=== PATIENT | female | born 1975 | race Caucasian/White ===

== ENCOUNTER → 2017-02-13 | Outpatient (CLI) | payer OTHER ==
[~2017-02-13] MED LIST: BUPIVACAINE MPF 0.25% 10 ML VIAL. ONE; IBUP-1007 PO; IBUP-1027 PO; IOHEXOL 180 MG/ML 10 ML VIAL. ONE; SENN-79 PO; methylPREDNISolone ACETATE 40 MG/ML VIAL. ONE; methylPREDNISolone ACETATE 80 MG/ML VIAL. ONE
== END | disposition home or self-care (01) ==
LOC: PNCL 09:32
PROVIDERS: ATTEND Anesthesiology
DX: M47.816 Spondylosis without myelopathy or radiculopathy, lumbar region (principal); Z88.6 Allergy status to analgesic agent
CPT/HCPCS: 64493; 64494; J1030; J1040; J3490

== ENCOUNTER → 2017-06-24 | Outpatient (CLI) | payer OTHER ==
[~2017-06-24] MED LIST changes: -BUPIVACAINE MPF 0.25% 10 ML VIAL. ONE; +ESCITALOPRAM OX10 MG PO; -IOHEXOL 180 MG/ML 10 ML VIAL. ONE; -methylPREDNISolone ACETATE 40 MG/ML VIAL. ONE; -methylPREDNISolone ACETATE 80 MG/ML VIAL. ONE
--- NOTE | 2017-06-25 03:01 | PAIN ---
DATE OF SERVICE: 06/24/2017 PROGRESS NOTE FOR CLINIC NOTE DIAGNOSES: Low back pain with lumbar spondylosis and lumbosacral spondylosis. HISTORY OF PRESENT ILLNESS: The patient is a 41-year-old female who returns for followup status post right-sided lumbar facet joint injections on 02/13/2017. The patient did very well and reports about 75% improvement until the end of April, the pain began to return as she was running, exercising much more aggressively. She was having a physical fitness assessment evaluation as she is in active , fell during this testing and landed on her right posterior hip and gluteus on her seat, essentially with significant pain increased in the low back and bilateral lower extremity as well as in the posterior gluteus and in the low back, right greater than left, similar to that prior to the treatments of injections, but much more intense with significant pain. The patient reports the pain has gotten better over the last week, but is still significant, rates it 8 on a scale of 10 at its worst, 6 on average and a 5 at least, it is a 6 today. The patient reports it is constant, aching, dull, shooting, sharp, also some cramping and stabbing pain with some hot sensations in the lower legs in the posterior calves occasionally. The patient reports it awakens her from sleep about every 4 hours or so. She has to reposition, get out of bed, taking pain medication to get back to sleep. The patient reports worse with standing, walking, changing positions, flexing and extending in the lumbar spine, sitting and changing positions from sitting to standing and vice versa. PHYSICAL EXAMINATION: VITAL SIGNS: The patient's blood pressure 137/80, pulse 98, respirations are 18, temperature 98.2 degrees Fahrenheit, height is 5 feet 7 inches, weighs 191 pounds. GENERAL: The patient is awake, alert, oriented, appropriate, very pleasant demeanor. HEENT: Head shows normocephalic, atraumatic. Extraocular movements are intact and symmetrical. Oral cavity shows mucous membranes moist and pink. Dentition is intact. NECK: Shows anterior throat is supple without palpable lymphadenopathy noted. Swallow reflex is symmetrical. Neck shows full rotational motion of the cervical spine without difficulty or tenderness. CHEST: Shows normal on inspection. Breath sounds are clear to auscultation bilaterally. HEART: Shows S1 and S2 clear. No murmurs auscultated. ABDOMEN: Soft, nontender, nondistended. No palpable organomegaly is noted. No rebound or guarding demonstrated. BACK: Shows spine grossly midline. Normal appearing thoracic kyphosis, lumbar lordotic curvature. On inspection lumbar paraspinous muscle shows symmetrical without evidence of atrophy or hypertrophy. With palpation shows exquisite tenderness throughout the upper, middle and lower distribution, slightly more intense on the right than the left, but present bilaterally even with very light touch to the paraspinous musculature, very tender, very severe pain with the patient withdrawing from the examining hand on right and left, much more tender over the posterior superior iliac spines and the lower lumbar paraspinous musculature on the right greater than left. Again, symmetrical in appearance with very firm, very tight musculature and very tender to palpation. The patient has good rotational motion of the lumbar spine with pain reported with extension as well as right lateral rotation greater than the left, but present bilaterally. Also, has some tenderness with forward flexion as well. No specific tenderness over the sacrum. Lower extremities show deep tendon reflexes 2+ in the patellar and tendo-calcaneus tendons. Motor exam is strong with 5/5 dorsiflexion, extension, quadriceps and hamstring flexion equal. Peripheral pulses are 2+ posterior tibial and dorsalis pedis pulses. No peripheral edema is noted bilaterally. PLAN: Options were discussed with the patient. The patient's old chart was reviewed as her current medication regimen updated. Current review of systems updated today as well. We will start with a Medrol Dosepak as well as baclofen for muscle relaxation. The patient was given instructions as well as side effects to be aware of each of the medications and we will follow up after approximately 1 week of the medication regimen. Also, encouraged the patient to do stretching and strengthening exercises of low back and even to seek massage therapy for the lumbar spine as this may help once the pain is reduced to some extent. We will see if the pain returns in a similar fashion to that prior to her facet injections with the spondylosis and assess this once the medication has had time to decrease the hypersensitive pain in the lumbar paraspinous musculature. The patient understands and agrees and will follow up as scheduled. CARMELA LOVETT MD DR: MARTHA/kranthi JOB#: [id number] / [id number]
== END | disposition home or self-care (01) ==
LOC: PNCL 13:18
PROVIDERS: ATTEND Anesthesiology
DX: M47.817 Spondylosis without myelopathy or radiculopathy, lumbosacral region (principal); M47.896 Other spondylosis, lumbar region
CPT/HCPCS: 99212

== ENCOUNTER → 2017-07-08 | Outpatient (CLI) | payer OTHER ==
[~2017-07-08] MED LIST changes: +BUPIVACAINE MPF 0.25% 10 ML VIAL. ONE; +IOHEXOL 180 MG/ML 10 ML VIAL. ONE; +methylPREDNISolone ACETATE 40 MG/ML VIAL. ONE; +methylPREDNISolone ACETATE 80 MG/ML VIAL. ONE
--- NOTE | 2017-07-08 12:22 | PN ---
DATE: PROGRESS NOTE FOR PAIN CLINIC DATE OF SERVICE: 07/08/2017. DIAGNOSES: 1. Low back pain. 2. Lumbar spondylosis both lumbar and lumbosacral. HISTORY OF PRESENT ILLNESS: The patient is a 41-year-old female who returns for followup status post a recent evaluation and preauthorization for right-sided facet joint injection. The patient reports she has her approval and I would like to proceed. Reports pain still in the right side low back radiating sometimes in the right gluteus, but usually just in the back itself, aching, dull tight description rated a 5 on scale 10, as worst 3 on average at 2 on a scale of 10, the least is a 3 today. The patient reports it wakes her from sleep occasionally, but not usually, usually she sleeps about 7 hours at a time without difficulties, she applies some cold to the low back feels better. Also, stretching and strengthening has been helping, but worse with walking, standing, changing positions, better with sitting or lying down. The patient reports no new motor or sensory deficits, no new bowel or bladder incontinence or other complaints. PHYSICAL EXAMINATION: VITAL SIGNS: Today, the patient's blood pressure is 114/76, pulse is 82, respirations are 16, temperature 97.9 degrees Fahrenheit, weight is 189 pounds. GENERAL: The patient is awake, alert, oriented, appropriate, very pleasant demeanor. HEENT: Head shows normocephalic, atraumatic. Extraocular movements are intact, symmetrical. Oral cavity: Mucous membranes moist and pink. Dentition is intact. NECK: Shows anterior throat supple without palpable lymphadenopathy noted. Swallow reflex symmetrical. CHEST: Shows normal with inspection. Breath sounds clear to auscultation bilaterally. HEART: Shows S1, S2 clear. No murmurs auscultated. ABDOMEN: Soft, nontender, nondistended. No palpable organomegaly. No rebound or guarding demonstrated. BACK: Shows spine grossly midline. Lumbar paraspinous muscle shows some symmetry, with inspection on palpation shows moderate tenderness, more on the right than the left in the low lumbar distribution only, but without trigger points, without atrophy, hypertrophy. No tenderness over the spinous processes, sacrum or sacroiliac regions. The patient has good rotational motion with some minor tenderness reported with right lateral rotation and more tenderness with extension at 10 degrees without pain on forward flexion or left lateral rotation. EXTREMITIES: Lower extremities show deep tendon reflexes at 2+ in the patellar and 1+ tendo calcaneus tendons. Motor exam is strong with 5/5 dorsiflexion, extension, quadriceps and hamstring flexion equal. Peripheral pulses are 1+ posterior tibial. No peripheral edema is noted. Options were discussed with the patient. The patient's old chart reviewed, her current medication regimen updated. Current review of systems updated today as well. We will proceed with a right-sided facet joint injection at the L4-L5 and L5-S1 levels using serum fluoroscopic guidance. Risks were discussed including but not limited to bleeding, infection, possibility of epidural hematoma, subsequent neurologic compromise, dural puncture, headaches, spinal cord and/or nerve damage, side effects of steroid medication and poor results regarding pain control. The patient understands and wished to proceed. The patient to return to clinic in approximately 2 weeks for followup. She was counseled to return appointment, activity level and side effects to be aware of. DIAGNOSIS: Lumbar and lumbosacral spondylosis. PROCEDURE: Lumbar and lumbosacral L4-L5 and L5-S1 facet joint injections with serum fluoroscopic guidance under sterile prep and drape using local anesthetic. Medication injected a total of 120 mg Depo-Medrol plus 2 mL of Isovue for contrast and 2 mL of 0.25% with negative aspirate in each level. CONDITION AT DISCHARGE: Stable. The patient tolerated the procedure well, had no complications. CARMELA LOVETT MD DR: MARTHA/kranthi JOB#: [id number] / [id number]
== END | disposition home or self-care (01) ==
LOC: PNCL 07:39
PROVIDERS: ATTEND Anesthesiology
DX: M47.817 Spondylosis without myelopathy or radiculopathy, lumbosacral region (principal); Z88.6 Allergy status to analgesic agent
CPT/HCPCS: 64493; 64494; J1030; J1040; J3490

== ENCOUNTER → 2017-10-07 | Outpatient (CLI) | payer OTHER ==
[~2017-10-07] MED LIST changes: +BUPIVACAINE MPF 0.25% 10 ML VIAL.; -BUPIVACAINE MPF 0.25% 10 ML VIAL. ONE; -ESCITALOPRAM OX10 MG PO; -IBUP-1007 PO; -IBUP-1027 PO; +IOHEXOL 180 MG/ML 10 ML VIAL.; -IOHEXOL 180 MG/ML 10 ML VIAL. ONE; +LIDOCAINE 1% PF 2 ML VIAL.; -SENN-79 PO; +methylPREDNISolone ACETATE 40 MG/ML VIAL.; -methylPREDNISolone ACETATE 40 MG/ML VIAL. ONE; +methylPREDNISolone ACETATE 80 MG/ML VIAL.; -methylPREDNISolone ACETATE 80 MG/ML VIAL. ONE
== END | disposition home or self-care (01) ==
LOC: PNCL 13:21
DX: M47.817 Spondylosis without myelopathy or radiculopathy, lumbosacral region (principal); Z88.6 Allergy status to analgesic agent
CPT/HCPCS: 64493; 64494; J1030; J1040; J3490; Q9965

== ENCOUNTER → 2017-10-21 | Outpatient (CLI) | payer OTHER ==
[~2017-10-21] MED LIST changes: -LIDOCAINE 1% PF 2 ML VIAL.
== END ==
LOC: PNCL 10:57
DX: M47.817 Spondylosis without myelopathy or radiculopathy, lumbosacral region (principal)
CPT/HCPCS: 64493; 64494; J1030; J1040; J3490; Q9965

== ENCOUNTER → 2017-11-03 | Outpatient (CLI) | payer OTHER | END | disposition home or self-care (01) | LOC: PNCL 09:06 | DX: M47.897 Other spondylosis, lumbosacral region (principal) | CPT/HCPCS: 99212 ==

== ENCOUNTER → 2017-12-10 | Outpatient (CLI) | payer OTHER | END | disposition home or self-care (01) | LOC: PNCL 12:45 | DX: M47.817 Spondylosis without myelopathy or radiculopathy, lumbosacral region (principal) | CPT/HCPCS: 64493; 64494; J1030; J1040; J3490; Q9965 ==

== ENCOUNTER 2018-01-03 11:51 | Emergency (ER) | payer OTHER ==
[2018-01-03 12:29] LABS: BILIRUBIN,URINE NEGATIVE (NEG); CLARITY,URINE TURBID; COLOR,URINE YELLOW; GLUCOSE,URINE NEGATIVE (NEG); NITRITE,URINE NEGATIVE (NEG); PH,URINE 7.5; PROTEIN,URINE NEGATIVE (NEG-TRACE)
[2018-01-03 12:29] LABS: URINE HCG POC HCG NEGATIVE (Negative)
[2018-01-03 12:37] LABS: BACTERIA,URINE FEW /HPF (0-FEW); RBC,URINE 0 /HPF (0-2); SQUAMOUS EPITHELIAL CELL,UR MANY /LPF; WBC,URINE 0 /HPF (0-4)
[2018-01-03] MEDS: ONDANSETRON PF 4 MG/2 ML VIAL. IV (12:55)
[2018-01-03] MEDS: diphenhydrAMINE 50 MG/ML VIAL IVP (12:58)
[2018-01-03] MEDS: IV NORMAL SALINE 1000ML BAG 1,000 ML IV (12:59)
[2018-01-03] MEDS: fentaNYL PF VIAL 100 MCG/2 ML VIAL IV (12:59)
[2018-01-03] MEDS ORDERED: CONTRAST GIVEN MC (13:00)
[2018-01-03 13:12] LABS: ADD MAN DIFF? NO
[2018-01-03 13:15] LABS: BASO % 1 % (0-3); EOS % 0 % (0-3); HEMATOCRIT 37.8 % (36.0-47.0); HEMOGLOBIN 13.6 g/dL (12.0-15.5); LYMPH # 1.2 x10^3/uL (1.0-4.8); LYMPH % 15 % (24-48); MEAN CORPUSCULAR HEMOGLOBIN 34 pg (25-35); MEAN CORPUSCULAR HGB CONC 36 g/dL (31-37); MEAN CORPUSCULAR VOLUME 96 fL (79-100); MONO # 0.8 x10^3/uL (0.0-1.1); MONO % 10 % (0-9); NEUT % 75 % (31-73); PLATELET COUNT 258 x10^3/uL (140-400); RED BLOOD COUNT 3.95 x10^6/uL (3.50-5.40); RED CELL DISTRIBUTION WIDTH 12.4 % (11.5-14.5); WHITE BLOOD COUNT 8.1 x10^3/uL (4.0-11.0)
[2018-01-03 13:23] LABS: ANION GAP 12 (6-14); BLOOD UREA NITROGEN 11 mg/dL (7-20); BUN/CREATININE RATIO 11 (6-20); CALCIUM 8.3 mg/dL (8.5-10.1); CARBON DIOXIDE 25 mmol/L (21-32); CHLORIDE 98 mmol/L (98-107); GFR 61.1; GLUCOSE 102 mg/dL (70-99); POTASSIUM 3.2 mmol/L (3.5-5.1); SODIUM 135 mmol/L (136-145)
[2018-01-03 13:29] LABS: ALBUMIN 3.3 g/dL (3.4-5.0); ALBUMIN/GLOBULIN RATIO 0.9 (1.0-1.7); ALK PHOS 72 U/L (46-116); ALT (SGPT) 27 U/L (14-59); AST (SGOT) 22 U/L (15-37); TOTAL PROTEIN 7.1 g/dL (6.4-8.2)
[2018-01-03 13:32] LABS: LACTIC ACID 1.5 mmol/L (0.4-2.0)
[2018-01-03] MEDS: IOHEXOL 300 MG/ML 100ML VIAL. IV (13:34)
== END 2018-01-03 14:46 | disposition home or self-care (01) ==
LOC: ER 11:51
DX: R10.31 Right lower quadrant pain (principal); L50.9 Urticaria, unspecified; T78.40XA Allergy, unspecified, initial encounter; Z90.49 Acquired absence of other specified parts of digestive tract; Z88.8 Allergy status to other drugs, medicaments and biological substances
CPT/HCPCS: 36415; 74177; 80053; 81001; 81025; 83605; 85025; 87040; 87086; 96374; 96375; 99285-25; J1200; J2405; J3010; J7030; Q9967

== ENCOUNTER → 2018-01-21 | Outpatient (CLI) | payer OTHER ==
[~2018-01-21] MED LIST changes: -IOHEXOL 180 MG/ML 10 ML VIAL.; +LIDOCAINE 1% PF 2 ML VIAL.; +LIDOCAINE 2% PF Vial for OR 5 ML VIAL.
== END | disposition home or self-care (01) ==
LOC: PNCL 12:56
DX: M47.817 Spondylosis without myelopathy or radiculopathy, lumbosacral region (principal); F43.10 Post-traumatic stress disorder, unspecified; Z88.5 Allergy status to narcotic agent; Z90.49 Acquired absence of other specified parts of digestive tract
CPT/HCPCS: 64635; 64636; J1030; J1040; J3490

== ENCOUNTER → 2018-02-09 | Day surgery (SDC) | payer OTHER ==
[~2018-02-09] MED LIST changes: -BUPIVACAINE MPF 0.25% 10 ML VIAL.; -LIDOCAINE 1% PF 2 ML VIAL.; +LIDOCAINE 1% PF 2 ML VIAL. ID; -LIDOCAINE 2% PF Vial for OR 5 ML VIAL.; +MIDAZOLAM HCL/PF 2 MG/2 ML VIAL. IV; +PROPOFOL 20 ML IV; +fentaNYL PF VIAL 100 MCG/2 ML VIAL IV; -methylPREDNISolone ACETATE 40 MG/ML VIAL.; -methylPREDNISolone ACETATE 80 MG/ML VIAL.
[2018-02-09 11:47] LABS: NEG OBC UR NEG; POS OBC UR POS; U PREG PATIENT NEGATIVE (NEG)
[2018-02-09] MEDS: IV RINGERS,LACTATED 1000ML 1,000 ML IV (11:50)
== END | disposition home or self-care (01) ==
LOC: SURG 11:07
DX: K57.30 Diverticulosis of large intestine without perforation or abscess without bleeding (principal); K64.0 First degree hemorrhoids; F43.10 Post-traumatic stress disorder, unspecified; Z90.49 Acquired absence of other specified parts of digestive tract; Z98.890 Other specified postprocedural states; Z72.89 Other problems related to lifestyle; Z88.8 Allergy status to other drugs, medicaments and biological substances
CPT/HCPCS: 45378; 81025; J2704

== ENCOUNTER → 2018-02-24 | Outpatient (CLI) | payer OTHER | END | disposition home or self-care (01) | LOC: PNCL 08:06 | DX: M47.896 Other spondylosis, lumbar region (principal); M47.897 Other spondylosis, lumbosacral region | CPT/HCPCS: 99212 ==

== ENCOUNTER → 2018-02-25 | Outpatient (CLI) | payer OTHER ==
[~2018-02-25] MED LIST changes: +BUPIVACAINE MPF 0.25% 10 ML VIAL.; +IOHEXOL 180 MG/ML 10 ML VIAL.; +LIDOCAINE 1% PF 2 ML VIAL.; -LIDOCAINE 1% PF 2 ML VIAL. ID; -MIDAZOLAM HCL/PF 2 MG/2 ML VIAL. IV; -PROPOFOL 20 ML IV; -fentaNYL PF VIAL 100 MCG/2 ML VIAL IV; +methylPREDNISolone ACETATE 40 MG/ML VIAL.; +methylPREDNISolone ACETATE 80 MG/ML VIAL.
== END | disposition home or self-care (01) ==
LOC: PNCL 14:05
DX: M47.817 Spondylosis without myelopathy or radiculopathy, lumbosacral region (principal); Z88.5 Allergy status to narcotic agent; Z90.49 Acquired absence of other specified parts of digestive tract; Z98.890 Other specified postprocedural states; F43.10 Post-traumatic stress disorder, unspecified
CPT/HCPCS: 64493; 64494; J1030; J1040; J3490; Q9965

== ENCOUNTER → 2018-03-17 | Outpatient (CLI) | payer OTHER ==
[~2018-03-17] MED LIST changes: -LIDOCAINE 1% PF 2 ML VIAL.; +LIDOCAINE 2% PF 2ML VIAL.; +LIDOCAINE 2% PF Vial for OR 5 ML VIAL.
== END | disposition home or self-care (01) ==
LOC: PNCL 10:04
DX: M47.817 Spondylosis without myelopathy or radiculopathy, lumbosacral region (principal); Z88.5 Allergy status to narcotic agent; Z90.49 Acquired absence of other specified parts of digestive tract; Z98.890 Other specified postprocedural states; Z79.899 Other long term (current) drug therapy; Z72.89 Other problems related to lifestyle
CPT/HCPCS: 64635; 64636; J1030; J1040; J2001; J3490; Q9965

== ENCOUNTER → 2020-07-09 | Outpatient (CLI) | payer OTHER ==
[2018-02-09 13:37] VITALS: BP 128/59
[~2020-07-09] MED LIST changes: +ACET500T68 PO; +BACL20TA PO; -BUPIVACAINE MPF 0.25% 10 ML VIAL.; +DULO60CA6 PO; +ESCITALOPRAM OX10 MG PO; +GABA-585 PO; +HYDR-2769 PO; +IBUP-1007 PO; +IBUP-1027 PO; +IBUP-1060 PO; -IOHEXOL 180 MG/ML 10 ML VIAL.; +LACT1CAP6 PO; +LEVO25TA4 PO; +LEVO500T59 PO; -LIDOCAINE 2% PF 2ML VIAL.; -LIDOCAINE 2% PF Vial for OR 5 ML VIAL.; +METR500T PO; +ONDA4TAB10 SL; +ONDA4TAB7 PO; +POLY17PO29 PO; +PSYL0.5215 PO; +PYRI200T3 PO; +SENN-182 PO; +THYR30TA PO; +TOPI50TA8 PO; +Vitamin d3; +marinol; -methylPREDNISolone ACETATE 40 MG/ML VIAL.; -methylPREDNISolone ACETATE 80 MG/ML VIAL.
--- NOTE | 2020-07-09 10:19 | PDOC ---
Progress Note - Pain Clinic Date of Service: DOS: DATE: 07/09/20 TIME: 10:15 Diagnosis: Dx: Lumbar radiculopathy with lumbar degenerative disease and lumbar and lumbosacral spondylosis Cervical radiculopathy with cervical degenerative disc disease History or Present Illness: HPI: 44-year-old female returns for follow-up last seen 2018 patient had radiofrequency ablation lumbar right and left L4-5 and L5-S1 facet medial branches. Patient reports did very well with his about 90% plus improvement in the low back over the past 2 years however the pain is returned in the low back and now rating the right lower extremity in the posterior gluteus posterior lateral thigh lateral anterior thigh anterior medial thigh medial lower leg to the calf into the ankle worse with walking standing changing positions. Patient ports better with sitting or laying down but awakens her from sleep at times and is worse in the morning when she first gets up. Patient also has pain in the base the neck and left upper extremity but also has rotator cuff injury on the left side. Patient rates her pain as a 9 is worse over the past week 8 on average 6 at its least is 8 today. Patient describes the pain as burning cramping and stabbing the low back and leg with shooting and radiating qualities as well. Patient reports no loss of motor function but significant fatigability the right lower extremity in the low back with activity. Patient did have a new MRI scans of both the cervical thoracic and lumbar spines which were reviewed with her today. Physical Exam: VS: Blood pressure is 113/81 pulse 79 respirations are 16 temperature is 97.9 F height is 5 feet 7 inches weight is 189 pounds PE: PHYSICAL EXAMINATION: GENERAL: The patient is awake, alert, oriented, appropriate, very pleasant demeanor HEENT: Shows normocephalic, atraumatic. Extraocular movements are intact and symmetrical. Oral cavity: Mucous membranes moist and pink. Dentition is intact. NECK: Shows anterior throat supple without palpable lymphadenopathy noted. Swallow reflex symmetrical. CHEST: Shows normal on inspection. Breath sounds are clear bilaterally, no rales rhonchi or wheezes. HEART: Shows S1, S2 clear. No murmurs auscultated. ABDOMEN: Soft, nontender, nondistended, obese. No palpable organomegaly is noted. No rebound or guarding demonstrated. BACK: Shows spine grossly in the midline. Normal-appearing cervical lordotic curvature. There is slightly increased thoracic kyphosis, some minor flattening of the lumbar lordotic curvature. Lumbar paraspinous muscles show symmetrical on inspection, on palpation shows some moderate tenderness diffusely throughout the upper, middle and lower distribution of the paraspinous muscles bilaterally and also into the lower thoracic paraspinous musculature, firm and tender, but without specific trigger points, without radiation of pain. The patient has good rotational motion of the lumbar spine, both laterally as well as extension and flexion with moderate pain noted with posterior extension and lumbar axial loading, moderate pain with right and left lateral rotation more to the left than the right at past 10 degrees but without radiation. No tenderness over the spinous processes, sacrum or sacroiliac regions. EXTREMITIES: Lower extremities show deep tendon reflexes 2+ in the patellar and tendo calcaneus tendons. Motor exam is 5 on a scale of 5 with right dorsiflexi on, extension, quadriceps and hamstring flexion and 5/5 on the left. Peripheral pulses are 1+ posterior tibial. No peripheral edema is noted bilaterally. Lower extremities are warm and dry to touch, equal in color and appearance. SKIN: Shows warm and dry, good turgor. No edema. No sores, rashes or bruising throughout. Procedure: Procedure: Options discussed with the patient. Patient chart was reviewed as her current medication regimen updated current review of systems updated today as well. We will preauthorize patient for lumbar epidural steroid injection and once obtained we will have patient return and proceed. We also discussed potential facet injections in the future as she did very well with these for her axial back pain and possible cervical epidural steroid injection pending orthopedic assessment of rotator cuff damage. Patient will continue with stretching strength exercises on her own and will follow-up for lumbar epidural steroid injection once approved. Medication Injected: Med Injected: None Condition at Discharge: Condition at Discharge: Condition at discharge is stable. CARMELA LOVETT MD Jul 09, 2020 10:19
== END | disposition home or self-care (01) ==
LOC: PNCL 09:27
PROVIDERS: ATTEND Anesthesiology
DX: M51.16 Intervertebral disc disorders with radiculopathy, lumbar region (principal); M47.27 Other spondylosis with radiculopathy, lumbosacral region; M50.10 Cervical disc disorder with radiculopathy, unspecified cervical region; Z90.49 Acquired absence of other specified parts of digestive tract; Z98.890 Other specified postprocedural states; Z79.899 Other long term (current) drug therapy; Z88.8 Allergy status to other drugs, medicaments and biological substances; Z72.89 Other problems related to lifestyle
CPT/HCPCS: 99212; G0463

== ENCOUNTER → 2020-07-23 | Outpatient (CLI) | payer OTHER ==
[2018-02-09 13:37] VITALS: BP 128/59
[~2020-07-23] MED LIST changes: +IOHEXOL 180 MG/ML 10 ML VIAL. ONE; +TOPI100T8 PO; +methylPREDNISolone ACETATE 40 MG/ML VIAL. ONE; +methylPREDNISolone ACETATE 80 MG/ML VIAL. ONE
--- NOTE | 2020-07-23 09:48 | PDOC ---
Progress Note - Pain Clinic Date of Service: DOS: DATE: 07/23/20 TIME: 09:46 Diagnosis: Dx: Lumbar radiculopathy with lumbar degenerative disc disease and lumbar spondylosis Cervical radiculopathy with cervical degenerative disc disease History or Present Illness: HPI: 45-year-old female returns follow-up status post initial evaluation and preauthorization for lumbar epidural steroid injection. Patient is achieved this would like to proceed today. Patient low back right greater than left lower extremity posterior gluteus posterior lateral thigh anterior thigh anteromedial thigh medial lower leg and into the foot and ankle on the left side as well. Patient reports her pain is a 7 on scale 10 is worse with the past week 6 on average 6 its least and is a 6 today. Patient reports is burning describes as constant aching sharp and tight in the back with shooting pain in the lower extremity as described. Patient reports no new motor or sensory deficits no new bowel or bladder incontinence or other complaints. Physical Exam: VS: Blood pressure is 100/69 pulse 98 respirations 16 temperature is 98.0 F and weight is 187 pounds PE: PHYSICAL EXAMINATION: GENERAL: The patient is awake, alert, oriented, appropriate, very pleasant demeanor HEENT: Shows normocephalic, atraumatic. Extraocular movements are intact and symmetrical. NECK: Shows anterior throat supple without palpable lymphadenopathy noted. Swallow reflex symmetrical. CHEST: Shows normal on inspection. Breath sounds are clear bilaterally. HEART: Shows S1, S2 clear. No murmurs auscultated. ABDOMEN: Soft, nontender, nondistended, obese. No palpable organomegaly is noted. No rebound or guarding demonstrated. BACK: Shows spine grossly in the midline. Normal-appearing cervical lordotic curvature. There is slightly increased thoracic kyphosis, some minor flattening of the lumbar lordotic curvature. Lumbar paraspinous muscles show symmetrical on inspection, on palpation shows some moderate tenderness diffusely throughout the upper, middle and lower distribution of the paraspinous muscles, but without specific trigger points, without radiation of pain. The patient has good rotational motion of the lumbar spine, both laterally as well as extension and flexion without significant difficulty. No tenderness over the spinous processes, sacrum or sacroiliac regions. EXTREMITIES: Lower extremities show deep tendon reflexes 2+ in the patellar and tendo calcaneus tendons. Motor exam is 5 on a scale of 5 with right dorsiflexion, extension, quadriceps and hamstring flexion and 5/5 on the left. Peripheral pulses are 1+ posterior tibial. No peripheral edema is noted bilaterally. Lower extremities are warm and dry to touch, equal in color and appearance. SKIN: Shows warm and dry, good turgor. No edema. No sores, rashes or bruising throughout. Procedure: Procedure: Options were discussed with the patient. Patient's old chart was reviewed as her current medication regimen updated current review of systems updated today as well. We will proceed with a lumbar epidural steroid injection today with fluoroscopic guidance. Risks were discussed including but not limited to: Bleeding, infection, possibility of epidural hematoma and subsequent neurological compromise, dural puncture, headaches, spinal cord and/or nerve damage, side effects of steroid medication, and poor results regarding pain control. Patient understands wished to proceed. Patient return to clinic in approximate 2 weeks for follow-up, was counseled as to return appointment activity level and side effects to be aware of. Medication Injected: Med Injected: Procedure is lumbar epidural steroid injection under local anesthetic using sterile prep and drape at the L3-4 level using C-arm fluoroscopic guidance in both AP and lateral views medications injected is 120 mg Depo-Medrol + 10 mL preservative-free normal saline and 2 mL contrast- condition at discharge is stable patient tolerated procedure well had no complications. Condition at Discharge: Condition at Discharge: Condition at discharge stable, patient tolerated seizure well and had no complications CARMELA LOVETT MD Jul 23, 2020 09:48
== END | disposition home or self-care (01) ==
LOC: PNCL 09:08
PROVIDERS: ATTEND Anesthesiology
DX: M51.16 Intervertebral disc disorders with radiculopathy, lumbar region (principal); M47.26 Other spondylosis with radiculopathy, lumbar region; M50.10 Cervical disc disorder with radiculopathy, unspecified cervical region; Z90.49 Acquired absence of other specified parts of digestive tract; Z98.890 Other specified postprocedural states; Z79.899 Other long term (current) drug therapy; Z72.89 Other problems related to lifestyle; Z88.8 Allergy status to other drugs, medicaments and biological substances
CPT/HCPCS: 62323; J1030; J1040; Q9965

== ENCOUNTER → 2020-08-06 | Outpatient (CLI) | payer OTHER ==
[2018-02-09 13:37] VITALS: BP 128/59
--- NOTE | 2020-08-06 10:04 | PDOC ---
Progress Note - Pain Clinic Date of Service: DOS: DATE: 08/06/20 TIME: 10:01 Diagnosis: Dx: Low back pain with lumbar radiculopathy lumbar degenerative disc disease and lumbar spondylosis Cervical radiculopathy with cervical degenerative disc disease History or Present Illness: HPI: 45-year-old female returns follow-up status post lumbar epidural steroid injection x1. Patient reports about 50% improvement overall with pain in the back is much better but still some pain in the hips more on the right than the left and present bilaterally in the posterior lateral hips lateral thighs anterior thighs medial thighs as well patient reports is a 7 on scale 10 is worse over the past week 6 on average for its least is a 5 today patient which is burning tight can be radiating constant with activity much better overall patient is been increase her distance walking doing household activities work activities travel with greater ease and comfort in sitting for prolonged periods which is much improved. Patient reports no new motor or sensory deficits no new bowel bladder incontinence occasionally wakes her from sleep but not every night. Physical Exam: VS: Blood pressure is 109/77 pulse 86 respirations 20 temperature 90.3 F height is 5 feet 7 inches weight is 191 pounds PE: PHYSICAL EXAMINATION: GENERAL: The patient is awake, alert, oriented, appropriate, very pleasant demeanor HEENT: Shows normocephalic, atraumatic. Extraocular movements are intact and symmetrical. NECK: Shows anterior throat supple without palpable lymphadenopathy noted. Swallow reflex symmetrical. CHEST: Shows normal on inspection. Breath sounds are clear bilaterally. HEART: Shows S1, S2 clear. No murmurs auscultated. ABDOMEN: Soft, nontender, nondistended, obese. No palpable organomegaly is noted. No rebound or guarding demonstrated. BACK: Shows spine grossly in the midline. Normal-appearing cervical lordotic curvature. There is slightly increased thoracic kyphosis, some minor flattening of the lumbar lordotic curvature. Lumbar paraspinous muscles show symmetrical on inspection, on palpation shows some moderate tenderness diffusely throughout the upper, middle and lower distribution of the paraspinous muscles, but without specific trigger points, without radiation of pain. The patient has good rotational motion of the lumbar spine, both laterally as well as extension and flexion without significant difficulty. No tenderness over the spinous processes, sacrum or sacroiliac regions. EXTREMITIES: Lower extremities show deep tendon reflexes 2+ in the patellar and tendo calcaneus tendons. Motor exam is 5 on a scale of 5 with right d orsiflexion, extension, quadriceps and hamstring flexion and 5/5 on the left. Peripheral pulses are 1+ posterior tibial. No peripheral edema is noted bilaterally. Lower extremities are warm and dry to touch, equal in color and appearance. SKIN: Shows warm and dry, good turgor. No edema. No sores, rashes or bruising throughout. Procedure: Procedure: Options were discussed with the patient. Patient chart was reviewed as her current medication regimen updated current review of systems updated today as well. We will proceed with a second in the series lumbar epidural steroid injection today with fluoroscopic guidance. Risks were discussed including but not limited to: Bleeding, infection, possibility of epidural hematoma and subsequent neurological compromise, dural puncture, headaches, spinal cord and/or nerve damage, side effects of steroid medication, and poor results regarding pain control. Patient understands wished to proceed. Patient return to clinic in approximate 2 weeks for follow-up, was counseled as to return appointment activity level and side effects to be aware of. Medication Injected: Med Injected: Procedure is lumbar epidural steroid injection under local anesthetic using sterile prep and drape at the L3-4 level using C-arm fluoroscopic guidance in both AP and lateral views medications injected is 120 mg Depo-Medrol + 10 mL preservative-free normal saline and 2 mL contrast- condition at discharge is stable patient tolerated procedure well had no complications. Condition at Discharge: Condition at Discharge: Condition at discharge is stable, patient tolerated the procedure well and had no complications. CARMELA LOVETT MD Aug 06, 2020 10:04
== END | disposition home or self-care (01) ==
LOC: PNCL 08:59
PROVIDERS: ATTEND Anesthesiology
DX: M51.16 Intervertebral disc disorders with radiculopathy, lumbar region (principal); M47.26 Other spondylosis with radiculopathy, lumbar region; M50.10 Cervical disc disorder with radiculopathy, unspecified cervical region; Z90.49 Acquired absence of other specified parts of digestive tract; Z98.890 Other specified postprocedural states; Z79.899 Other long term (current) drug therapy; Z88.8 Allergy status to other drugs, medicaments and biological substances; Z72.89 Other problems related to lifestyle
CPT/HCPCS: 62323; J1030; J1040; Q9965

== ENCOUNTER → 2020-08-24 | Outpatient (CLI) | payer OTHER ==
[2018-02-09 13:37] VITALS: BP 128/59
--- NOTE | 2020-08-24 10:40 | PDOC ---
Progress Note - Pain Clinic Date of Service: DOS: DATE: 08/24/20 TIME: 10:35 Diagnosis: Dx: Cervical radiculopathy with cervical degenerative disc disease Lumbar radiculopathy with lumbar degenerative disease and lumbar and lumbosacral spondylosis Occipital neuralgia bilateral History or Present Illness: HPI: 45-year-old female returns follow-up status post lumbar epidural steroid injections x2. Patient reports about 80% improvement in her low back and bilateral lower extremity pain with almost no pain on the left side and only mild pain rated as a 2 on a scale of 10 on the right side. Patient will keep increasing activity distance walking doing greater work activities household activities travel with greater ease and comfort and sleeping better at night with her back to her back and legs however her chief complaint is neck and bilateral upper extremity pain worse on the left than the right. Patient also reports significant posterior headaches worse on the left than the right but present bilaterally consistent with previous diagnosis of occipital neuralgia. Patient does have a left rotator cuff which is scheduled for surgery October 02, 2020. Patient reports that the pain in the neck and shoulders bilaterally is keeping her up at night about every 4-5 hours wakes her from sleep she has to get out of bed change positions to get back to sleep. Patient reports her pain is a 9 on scale of 10 is worse over the past week regarding her neck and upper extremities 7 at its average and 6 its least is a 7 today. Patient reports no new motor or sensory deficits no bowel or bladder incontinence. Physical Exam: VS: Pressure is 117/81 pulse 84 respirations 16 temperature 97.8 F, height is 5 foot 7-1/2 inches weight is 1 8 8 pounds PE: PHYSICAL EXAMINATION: GENERAL: The patient is awake, alert, oriented, appropriate, very pleasant demeanor HEENT: Shows normocephalic, atraumatic. Extraocular movements are intact and symmetrical. Oral cavity: Mucous membranes moist and pink. NECK: Shows anterior throat supple without palpable lymphadenopathy noted. Swallow reflex symmetrical. CHEST: Shows normal on inspection. Breath sounds are clear bilaterally, no rales or rhonchi. HEART: Shows S1, S2 clear. No murmurs auscultated. ABDOMEN: Soft, nontender, nondistended, obese. No palpable organomegaly is noted. No rebound or guarding demonstrated. BACK: Shows spine grossly in the midline. Normal-appearing cervical lordotic curvature. Cervical paraspinous posterior shows symmetrical with inspection, on palpation shows some moderate tenderness diffusely bilaterally in the inferior aspect of the cervical paraspinous posture as well as the superior medial trapezius bilaterally slightly more on the right than the left. Patient has good rotation motion of the cervical spine both laterally greater than 45 degrees right level is full extension full forward flexion without significant increase in pain. There is slightly increased thoracic kyphosis, some mild flattening of the lumbar lordotic curvature. Lumbar paraspinous muscles show symmetrical on inspection, on palpation shows some moderate tenderness diffusely throughout the upper, middle and lower distribution of the paraspinous muscles, but without specific trigger points, without radiation of pain. The patient has good rotational motion of the lumbar spine, both laterally as well as extension and flexion without significant difficulty. No tenderness over the spinous processes, sacrum or sacroiliac regions. EXTREMITIES: Lower extremities show deep tendon reflexes 2+ in the patellar and tendo calcaneus tendons. Motor exam is 5 on a scale of 5 with right dorsiflexion, extension, quadriceps and hamstring flexion and 5/5 on the left. Peripheral pulses are 1+ posterior tibial. No peripheral edema is noted bilaterally. Lower extremities are warm and dry to touch, equal in color and appearance. Upper extremity show deep tendon reflexes 2+ in the bicep and triceps tendons and are equal. [employer] strength biceps and triceps flexion is 5 out of 5 and equal. Patient does have significant difficulty with abduction of the shoulder on the left secondary to significant pain and rotator cuff tear right side is normal rotation. SKIN: Shows warm and dry, good turgor. No edema. No sores, rashes or bruising throughout. Procedure: Procedure: Options were discussed with the patient. Patient chart reviews her current medication regimen updated current review of systems updated today as well. We will proceed with a cervical epidural steroid injection today with fluoroscopic guidance. Risks were discussed including but not limited to: Bleeding, infection, possibility of epidural hematoma and subsequent neurological compromise, dural puncture, headaches, spinal cord and/or nerve damage, side effects of steroid medication, and poor results regarding pain control. Patient understands wished to proceed. Patient will return to clinic in approximate 2 weeks for follow-up was counseled as to return appointment activity level and side effects to be aware of. Medication Injected: Med Injected: Procedure cervical epidural steroid injection at the C6-7 level, using local anesthetic under sterile prep and drape using C-arm fluoroscopic guidance under local anesthesia medications injected ; 120 mg Depo-Medrol + 5 mL normal saline and 2 mL contrast; condition at discharge is stable patient tolerated procedure well. and had no complications Condition at Discharge: Condition at Discharge: Condition at discharge stable, patient tolerated the procedure well and had no complications. CARMELA LOVETT MD Aug 24, 2020 10:40
== END | disposition home or self-care (01) ==
LOC: PNCL 09:43
PROVIDERS: ATTEND Anesthesiology
DX: M50.10 Cervical disc disorder with radiculopathy, unspecified cervical region (principal); M51.16 Intervertebral disc disorders with radiculopathy, lumbar region; M47.27 Other spondylosis with radiculopathy, lumbosacral region; M54.81 Occipital neuralgia; Z90.49 Acquired absence of other specified parts of digestive tract; Z98.890 Other specified postprocedural states; Z79.899 Other long term (current) drug therapy; Z72.89 Other problems related to lifestyle; Z88.1 Allergy status to other antibiotic agents; Z88.8 Allergy status to other drugs, medicaments and biological substances
CPT/HCPCS: 62321; J1030; J1040; Q9965

== ENCOUNTER → 2020-09-26 | Outpatient (CLI) | payer OTHER ==
[2018-02-09 13:37] VITALS: BP 128/59
[~2020-09-26] MED LIST changes: +BUPIVACAINE MPF 0.25% 10 ML VIAL. ONE; +CARB15DR3 OU; +CYAN25008 PO; +DRON10CA5 PO; -IOHEXOL 180 MG/ML 10 ML VIAL. ONE; +LACT1CAP29 PO; +LEVO112T49 PO; +LEVO25TA55 PO; +LIOT5TAB4 PO; +TOPI50CA5 PO; +[UNRECOGNIZED DRUG - OTHER] PO; -methylPREDNISolone ACETATE 80 MG/ML VIAL. ONE
--- NOTE | 2020-09-26 11:59 | PDOC ---
Progress Note - Pain Clinic Date of Service: DOS: DATE: 09/26/20 TIME: 11:48 Diagnosis: Dx: Low back pain with lumbar degenerative disc disease and lumbar and lumbosacral spondylosis Cervical radiculopathy with cervical degenerative disease Bilateral occipital neuralgia History or Present Illness: HPI: 45-year-old female returns in follow-up status post cervical epidural steroid injections as well as lumbar facet injections and radiofrequency ablation with excellent results near 100% improvement with the lumbar facet radio frequency ablation. Patient reports neck is doing better but only by about 75% chief complaint today is occipital headaches and we discussed this with her on her last visit and was waiting for preauthorization which she is obtained now for occipital nerve blocks she did very well with these in the past. Patient ports significant headache left greater than right in the posterior aspect of the occipital region radiating into the posterior occiput and parietal region again bilateral but much worse on the left side. Patient which is dull and aching burning and can be constant sharp and dull in stations as well in the posterior occipital region bilaterally. Patient reports no new motor or sensory deficits but still significant pain is returning now in the low back greater on the right than the left consistent with facet syndrome with increased pain with axial loading and extension of the lumbar spine without radiation into the lower extremities again with right lateral rotation worse on the right side. Physical Exam: VS: Blood pressure is 110/78 pulse 76 respirations 18 temperature is 97.5 F height 5 feet 7 inches weight 196 pounds PE: PHYSICAL EXAMINATION: GENERAL: The patient is awake, alert, oriented, appropriate, very pleasant demeanor HEENT: Shows normocephalic, atraumatic. Extraocular movements are intact and symmetrical. NECK: Shows anterior throat supple without palpable lymphadenopathy noted. Swallow reflex symmetrical. CHEST: Shows normal on inspection. Breath sounds are clear bilaterally, no rales or rhonchi. HEART: Shows S1, S2 clear. No murmurs auscultated. ABDOMEN: Soft, nontender, nondistended, obese. No palpable organomegaly is noted. BACK: Shows spine grossly in the midline. Normal-appearing cervical lordotic curvature. Cervical paraspinous muscles show symmetrical on inspection, on palpation shows some diffuse tenderness in the superior aspect of the cervical paraspinous muscles are greater on the left than the right but present bilaterally without specific trigger points. With palpation over the posterior occipital region shows very significant tenderness and sore musculature very firm on the left side as opposed to the right but without radiation. Patient shows good rotation motion cervical spine both laterally as well as extension flexion without significant increase in pain. There is slightly increased thoracic kyphosis, some flattening of the lumbar lordotic curvature. Lumbar paraspinous muscles show symmetrical on inspection, on palpation shows some moderate tenderness diffusely throughout the upper, middle and lower distribution of the paraspinous muscles bilaterally and also into the lower thoracic paraspinous musculature, firm and tender, but without specific trigger points, without radiation of pain. The patient has good rotational motion of the lumbar spine, with increased pain with extension and axial loading and lumbar spine as well as greater right lateral rotation greater than 10 degrees as opposed to left but significant pain 2 both sides without radiation to lower extremities full forward flexion is performed at 45 degrees without significant increase in pain. No tenderness over the spinous processes, sacrum or sacroiliac regions. EXTREMITIES: Lower extremities show deep tendon reflexes 2+ in the patellar and tendo calcaneus tendons. Motor exam is 5 on a scale of 5 with right dorsiflex ion, extension, quadriceps and hamstring flexion and 5/5 on the left. Peripheral pulses are 1+ posterior tibial. No peripheral edema is noted bilaterally. Lower extremities are warm and dry to touch, equal in color and appearance. Upper extremities show deep tendon reflexes 2+ in the bicep triceps tendons, motor exam is strong with director of quality strength as is bicep and tricep flexion rated 5 out of 5 and equal. Peripheral pulses are 2+ radial bilaterally. SKIN: Shows warm and dry, good turgor. No edema. No sores, rashes or bruising throughout. 5 Procedure: Procedure: Options were discussed with the patient, patient's old chart reviews her current medication regimen updated current review of systems updated today as well. We will proceed with bilateral greater and lesser occipital nerve blocks today. Risks were discussed including but not limited to bleeding infection possibility of intravascular injection and sequelae, spread to local anesthetic and numbness and side effects of steroid medication. Patient understands wished to proceed. Patient return to clinic in approximately 4 weeks for follow-up was counseled to return appointment activity level and side effects to be aware of. Medication Injected: Med Injected: Under sterile prep and drape patient sitting position bilateral greater and lesser occipital nerve blocks were carried out using a 25-gauge 1/2 inch needle at the median distance between the occipital protuberance and the mastoid p rocess with a palpable occipital pulse both left and right total of 4 cc each side for a total of 8 cc of bupivacaine was used after negative aspiration each side as well as a total of 40 mg Depo-Medrol, 20 mg each side. Sterile bandages were applied patient tolerated procedure well and had no complications. Condition at Discharge: Condition at Discharge: Condition at discharge stable, patient alert procedure well and had no complications. We discussed potential repeat radiofrequency ablation as patient is having significant increase in pain in the lumbar spine consistent with facet syndrome and has done very well with these in the past. We will wait for preauthorization and have her return for potential bilateral L4-5 and L5-S1 lumbar medial branch radiofrequency ablation. CARMELA LOVETT MD Sep 26, 2020 11:59
--- NOTE | 2020-09-26 12:00 | PDOC4 ---
PROCEDURE Procedure Patient was consented for bilateral greater and lesser occipital nerve blocks. Risks were discussed including but not limited to bleeding infection possibility of intravascular injection sequelae spread to local anesthetic numbness side effects steroid medication and portal scarring pain control. Patient understands wished to proceed. Under sterile prep and drape patient sitting position bilateral greater and lesser occipital nerve blocks were carried out using a 25-gauge 1/2 inch needle at the median distance between the occipital protuberance and the mastoid process with a palpable occipital pulse both left and right total of 4 cc each side for a total of 8 cc of bupivacaine was used after negative aspiration each side as well as a total of 40 mg Depo-Medrol, 20 mg each side. Sterile bandages were applied patient tolerated procedure well and had no complications. CARMELA LOVETT MD Sep 26, 2020 12:00
== END | disposition home or self-care (01) ==
LOC: PNCL 10:42
PROVIDERS: ATTEND Anesthesiology
DX: M54.81 Occipital neuralgia (principal); M51.36 Other intervertebral disc degeneration, lumbar region; M47.816 Spondylosis without myelopathy or radiculopathy, lumbar region; M50.10 Cervical disc disorder with radiculopathy, unspecified cervical region; Z88.6 Allergy status to analgesic agent; Z91.048 Other nonmedicinal substance allergy status; Z88.8 Allergy status to other drugs, medicaments and biological substances; Z98.890 Other specified postprocedural states
CPT/HCPCS: 64405; J1030; J3490

== ENCOUNTER → 2020-09-28 | Outpatient (CLI) | payer OTHER ==
[2018-02-09 13:37] VITALS: BP 128/59
[~2020-09-28] MED LIST changes: -BUPIVACAINE MPF 0.25% 10 ML VIAL. ONE; -methylPREDNISolone ACETATE 40 MG/ML VIAL. ONE
== END ==
LOC: LAB 13:05
PROVIDERS: ATTEND Orthopaedic Surgery
DX: Z01.812 Encounter for preprocedural laboratory examination (principal); S43.432A Superior glenoid labrum lesion of left shoulder, initial encounter; Z20.822 Contact with and (suspected) exposure to COVID-19; X58.XXXA Exposure to other specified factors, initial encounter; Y93.89 Activity, other specified; Y92.89 Other specified places as the place of occurrence of the external cause; Y99.8 Other external cause status
CPT/HCPCS: U0003

== ENCOUNTER → 2020-10-02 | Day surgery (SDC) | payer OTHER ==
[~2020-10-02] VITALS: Ht 171.4 cm; Wt 86.2 kg
[~2020-10-02] MED LIST changes: +BUPIVACAINE MPF 0.5% 30 ML VIAL. ONE; +BUPIVACAINE-EPI 0.5% 30 ML VIAL KIT. ONE; +CLINDAMYCIN 900MG PREMIX 50 ML IV PRN; +DEXAMETHASONE SOD PHOS 4 MG/ML VIAL ONE; +EPINEPHrine VIAL 30 MG/30 ML VIAL ONE; +GLYCOPYRROLATE 1 MG/5 ML VIAL. ONE; +HYDROmorphone 2 MG/ML VIAL IVP PRN; +IV RINGERS,LACTATED 1000ML 1,000 ML IV SCH; +LIDOCAINE 1% PF 2 ML VIAL. ONE; +LIDOCAINE 2% PF 5 ML VIAL. ONE; +MIDAZOLAM HCL/PF 2 MG/2 ML VIAL. ONE; +MORPHINE SULFATE 2 MG/ML VIAL. IVP PRN; +NEOSTIGMINE METHYLSULFATE 5 MG/5 ML SYRINGE. ONE; +ONDANSETRON PF 4 MG/2 ML VIAL. ONE; +PHENYLEPHRINE in 0.9% NACL PF 1 MG/10 ML SYRINGE. IV ONE; +PROCHLORPERAZINE 10 MG/2 ML VIAL. IVP PRN; +PROCHLORPERAZINE 10 MG/2 ML VIAL. ONE; +PROPOFOL 10 MG/ML (20ML) VIAL. IV ONE; +ROCURONIUM 50 MG/5 ML VIAL. ONE; +SCOPOLAMINE 1.5MG PATCH. TD ONE; +SEVOFLURANE 61 TO 120 MINUTES. IH ONE; +SUCCINYLCHOLINE 200 MG/10 ML VIAL. ONE; +diphenhydrAMINE 50 MG/ML VIAL ONE; +fentaNYL PF VIAL 100 MCG/2 ML VIAL IVP PRN
[2020-10-02 07:00] VITALS: BP 112/61
[2020-10-02 07:34] LABS: BASO % 1 % (0-3); EOS # 0.2 x10^3/uL (0.0-0.7); EOS % 4 % (0-3); HEMOGLOBIN 12.9 g/dL (12.0-15.5); LYMPH # 2.3 x10^3/uL (1.0-4.8); LYMPH % 42 % (24-48); MEAN CORPUSCULAR HEMOGLOBIN 34 pg (25-35); MEAN CORPUSCULAR HGB CONC 34 g/dL (31-37); MEAN CORPUSCULAR VOLUME 100 fL (79-100); MONO # 0.5 x10^3/uL (0.0-1.1); MONO % 9 % (0-9); NEUT # 2.4 x10^3/uL (1.8-7.7); NEUT % 44 % (31-73); PLATELET COUNT 286 x10^3/uL (140-400); RED BLOOD COUNT 3.81 x10^6/uL (3.50-5.40); RED CELL DISTRIBUTION WIDTH 13.1 % (11.5-14.5); WHITE BLOOD COUNT 5.4 x10^3/uL (4.0-11.0)
[2020-10-02 07:44] LABS: CALCIUM 9.1 mg/dL (8.5-10.1); GFR 60.2
--- NOTE | 2020-10-02 22:44 | PDOC4 ---
Operative Note Operative Note Date of surgery: 10/02/2020 Preoperative diagnosis: Left shoulder labral tear and severe acromioclavicular joint pain Postoperative diagnosis: Labral tear without biceps compromise, acromioclav icular joint degenerative joint disease and severe subacromial irritation Operative procedure: Left shoulder arthroscopy extensive labral debridement, subacromial decompression distal clavicle excision Surgeon: Esther Anesthesia: General plus scalene block Currency Exchange Specialist: Nura colon Complications: None Operative indications: Please see my preoperative orthopedic clinic note for detailed operative indications and note that we reviewed indications today and risk benefits postoperative course including the possibility of infection nerve or blood vessel damage continued pain medical or other anesthetic complications among others she wishes to proceed with surgical evaluation and treatment. Operative text: Patient was identified procedure verified patient placed in the supine position on the operating table. After adequate amounts of general anesthesia plus a pre-existing scalene block were obtained, she was placed decubitus position left side up using the beanbag positioner and all bony prom inences were well-padded. The shoulder was first examined under anesthesia found to have full range of motion and no instability. The left shoulder was then prepped and draped in the standard sterile fashion and placed in the arthroscopic arm steiner with a total of 10 pounds of traction. After timeout was performed patient procedure identified and verified a standard posterior p ortal was established an anterior portal established using spinal needle localization and the shoulder joint was systematically examined. She was noted to have significant labral tearing and fraying around the entire periphery which was debrided back to stable tissue using a combination of the arthroscopic shaver and electrocautery. There was no peelback lesion superiorly nor was there compromise of the biceps tendon or insertion as it was exposed in the joint likewise no subluxation. Rotator cuff insertion and bare area of the humerus were noted to be normal as were the capsuloligamentous structures. Subacromial space was entered and there was significant subacromial irritation and a large anterior acromial spur and a very degenerative narrowed acromioc lavicular joint. Acromion was converted to a type I acromion using cutting block technique and distal clavicle was excised 1 cm preserving the overlying joint capsule for stability. Bony fragments were removed with the arthroscopic shaver and the rotator cuff noted to be without compromise on the bursal surface and all degrees of internal/external rotation. Arthroscope was withdrawn joint was drained of arthroscopic fluid portals Were closed with nylon suture sterile dressings were applied patient was returned to recovery room in stable condition having tolerated the procedure well. Nura mensah assist was present for the procedure assisted in patient positioning prepping draping closure and dressings ISHAN DAO MD Oct 02, 2020 22:44
== END | disposition home or self-care (01) ==
LOC: SURG 06:06
PROVIDERS: ATTEND Orthopaedic Surgery
DX: S43.432A Superior glenoid labrum lesion of left shoulder, initial encounter (principal); K21.9 Gastro-esophageal reflux disease without esophagitis; M19.90 Unspecified osteoarthritis, unspecified site; F41.9 Anxiety disorder, unspecified; F32.9 Major depressive disorder, single episode, unspecified; Z90.49 Acquired absence of other specified parts of digestive tract; Z98.890 Other specified postprocedural states; Z79.899 Other long term (current) drug therapy; Z72.89 Other problems related to lifestyle; Z88.8 Allergy status to other drugs, medicaments and biological substances; X58.XXXA Exposure to other specified factors, initial encounter; Y93.89 Activity, other specified; Y92.89 Other specified places as the place of occurrence of the external cause; Y99.8 Other external cause status
CPT/HCPCS: 29822; 29824; 36415; 64415; 80048; 81025; 85025; J0171; J0330; J0780; J1100; J1200; J2250; J2370; J2405; J2704; J2710; J3010; J3490; J7120

== ENCOUNTER → 2021-01-18 | Outpatient (CLI) | payer OTHER ==
[2020-10-02 07:00] VITALS: BP 112/61
[~2021-01-18] MED LIST changes: -BUPIVACAINE MPF 0.5% 30 ML VIAL. ONE; -BUPIVACAINE-EPI 0.5% 30 ML VIAL KIT. ONE; -CLINDAMYCIN 900MG PREMIX 50 ML IV PRN; -DEXAMETHASONE SOD PHOS 4 MG/ML VIAL ONE; -EPINEPHrine VIAL 30 MG/30 ML VIAL ONE; +EPIPEN 2-P0.3 MG/0.3 IM; -GLYCOPYRROLATE 1 MG/5 ML VIAL. ONE; +HYDR200T5 PO; -HYDROmorphone 2 MG/ML VIAL IVP PRN; +IOHEXOL 180 MG/ML 10 ML VIAL. ONE; -IV RINGERS,LACTATED 1000ML 1,000 ML IV SCH; -LACT1CAP29 PO; +LACT1CAP37 PO; -LIDOCAINE 1% PF 2 ML VIAL. ONE; -LIDOCAINE 2% PF 5 ML VIAL. ONE; +MAGN400C PO; -MIDAZOLAM HCL/PF 2 MG/2 ML VIAL. ONE; -MORPHINE SULFATE 2 MG/ML VIAL. IVP PRN; +NAPR220T70 PO; -NEOSTIGMINE METHYLSULFATE 5 MG/5 ML SYRINGE. ONE; -ONDANSETRON PF 4 MG/2 ML VIAL. ONE; -PHENYLEPHRINE in 0.9% NACL PF 1 MG/10 ML SYRINGE. IV ONE; -PROCHLORPERAZINE 10 MG/2 ML VIAL. IVP PRN; -PROCHLORPERAZINE 10 MG/2 ML VIAL. ONE; -PROPOFOL 10 MG/ML (20ML) VIAL. IV ONE; -ROCURONIUM 50 MG/5 ML VIAL. ONE; +SCOP1PAT11 TP; -SCOPOLAMINE 1.5MG PATCH. TD ONE; -SEVOFLURANE 61 TO 120 MINUTES. IH ONE; -SUCCINYLCHOLINE 200 MG/10 ML VIAL. ONE; +TAPE50TA10 PO; -diphenhydrAMINE 50 MG/ML VIAL ONE; -fentaNYL PF VIAL 100 MCG/2 ML VIAL IVP PRN; +methylPREDNISolone ACETATE 40 MG/ML VIAL. ONE; +methylPREDNISolone ACETATE 80 MG/ML VIAL. ONE
--- NOTE | 2021-01-18 08:28 | PDOC ---
Progress Note - Pain Clinic Date of Service: DOS: DATE: 01/18/21 TIME: 08:24 Diagnosis: Dx: Lumbar radiculopathy with lumbar degenerative disease and lumbar, and lumbosacral spondylosis Cervical radiculopathy with cervical degenerative disc disease Occipital neuralgia History or Present Illness: HPI: 45-year-old female returns for follow-up status post previous lumbar facet injections as well as radiofrequency ablation with very good results as well as lumbar epidural steroid injection most recently July 2020. Patient returns today reporting significant pain radiating to bilateral lower extremities more on the right than the left but present bilaterally into the posterior gluteus lateral thigh anterior thigh medial thigh medial lower leg and into the ankle with a "rubber band" feeling on the right ankle patient reports that sharp tight in the foot like rubber band burning in the hip on the right side greater than left radiating across low back and into the lower extremities and becoming more constant. Patient reports is an 8 on scale 10 is worse over the past week 6 on average 6 its least is a 6 today. Patient reports no new motor or sensory de ficits no new bowel or bladder incontinence or other complaints. Patient reports he fell on a set of 15 stairs recently and has had increased pain in her right hip however she had some plain films that showed no fracture. Physical Exam: VS: Blood pressure is 97/60 pulse 81 respirations are 18 temperature is 90.1 F height 5 feet 7 inches weight 196 pounds. PE: PHYSICAL EXAMINATION: GENERAL: The patient is awake, alert, oriented, appropriate, very pleasant demeanor HEENT: Shows normocephalic, atraumatic. Extraocular movements are intact and symmetrical. Oral cavity: Mucous membranes moist and pink. NECK: Shows anterior throat supple without palpable lymphadenopathy noted. Swallow reflex symmetrical. CHEST: Shows normal on inspection. Breath sounds are clear bilaterally, no rales or rhonchi. HEART: Shows S1, S2 clear. No murmurs auscultated. ABDOMEN: Soft, nontender, nondistended, obese. No palpable organomegaly is noted. BACK: Shows spine grossly in the midline. Normal-appearing cervical lordotic curvature. There is slightly increased thoracic kyphosis, some minor flattening of the lumbar lordotic curvature. Lumbar paraspinous muscles show symmetrical on inspection, on palpation shows some moderate tenderness diffusely throughout the upper, middle and lower distribution of the paraspinous muscles without specific trigger points, without radiation of pain. The patient has good rotational motion of the lumbar spine, both laterally as well as extension and flexion with moderate tenderness with right and left lateral rotation greater than 10 degrees and significantly more tenderness with extension and axial loading at 10 degrees with relief of the pain and forward flexion at 45 degrees without difficulty. EXTREMITIES: Lower extremities show deep tendon reflexes 2+ in the patellar and tendo calcaneus tendons. Motor exam is 5 on a scale of 5 with right dorsiflexion, extension, quadriceps and hamstring flexion and 5/5 on the left. Peripheral pulses are 1 posterior tibial. No peripheral edema is noted bilaterally. Lower extremities are warm and dry to touch, equal in color and appearance. SKIN: Shows warm and dry, good turgor. No edema. No sores, rashes or bruising throughout. Procedure: Procedure: Options were discussed with the patient. Patient's old chart was reviewed as her current medication regimen updated current review of systems updated today as well. We will proceed with a lumbar epidural steroid injection today with fluoroscopic guidance. Risks were discussed including but not limited to: Bleeding, infection, possibility of epidural hematoma and subsequent neurological compromise, dural puncture, headaches, spinal cord and/or nerve damage, side effects of steroid medication, and poor results regarding pain control. Patient understands and wished to proceed. Patient return to clinic in approximate 2 weeks for follow-up, was counseled as return appointment activity level and side effects beware. We also discussed potential of repeat radiofrequency ablation as patient still has significant facet mediated pain especially with extension of the lumbar spine. Patient will work on this regarding her insurance approval and we will as well. Medication Injected: Med Injected: Procedure is lumbar epidural steroid injection under local anesthetic using st erile prep and drape at the L3-4 level using C-arm fluoroscopic guidance in both AP and lateral views medications injected is 120 mg Depo-Medrol +10mL preservative-free normal saline and 2 mL contrast- condition at discharge is stable patient tolerated procedure well had no complications. Condition at Discharge: Condition at Discharge: Condition at discharge stable, patient alert procedure well had no complications. CARMELA LOVETT MD Jan 18, 2021 08:28
--- NOTE | 2021-01-18 08:28 | PDOC4 ---
PROCEDURE Procedure Patient was consented for lumbar epidural steroid injection. Risks were dis cussed including but not limited to: Bleeding, infection, possibility of epidural hematoma and subsequent neurological compromise, dural puncture, headaches, spinal cord and/or nerve damage, side effects of steroid medication, and poor results regarding pain control. Patient understands and wished to proceed. Procedure is lumbar epidural steroid injection under local anesthetic using sterile prep and drape at the L3-4 level using C-arm fluoroscopic guidance in both AP and lateral views medications injected is 120 mg Depo-Medrol +10mL preservative-free normal saline and 2 mL contrast- condition at discharge is stable patient tolerated procedure well had no complications. CARMELA LOVETT MD Jan 18, 2021 08:28
== END | disposition home or self-care (01) ==
LOC: PNCL 07:35
PROVIDERS: ATTEND Anesthesiology
DX: M51.16 Intervertebral disc disorders with radiculopathy, lumbar region (principal); M50.10 Cervical disc disorder with radiculopathy, unspecified cervical region; M47.27 Other spondylosis with radiculopathy, lumbosacral region; M54.81 Occipital neuralgia; K21.9 Gastro-esophageal reflux disease without esophagitis; M19.90 Unspecified osteoarthritis, unspecified site; F41.9 Anxiety disorder, unspecified; F32.9 Major depressive disorder, single episode, unspecified; Z86.73 Personal history of transient ischemic attack (TIA), and cerebral infarction without residual deficits; Z90.49 Acquired absence of other specified parts of digestive tract; Z98.890 Other specified postprocedural states; Z79.899 Other long term (current) drug therapy; Z88.1 Allergy status to other antibiotic agents; Z88.5 Allergy status to narcotic agent; Z88.8 Allergy status to other drugs, medicaments and biological substances; Z72.89 Other problems related to lifestyle
CPT/HCPCS: 62323; J1030; J1040; Q9965

== ENCOUNTER → 2021-02-06 | Outpatient (CLI) | payer OTHER ==
[2020-10-02 07:00] VITALS: BP 112/61
[~2021-02-06] MED LIST changes: +BUPIVACAINE MPF 0.25% 10 ML VIAL. ONE
--- NOTE | 2021-02-06 08:27 | PDOC4 ---
PROCEDURE Procedure Patient was consented for bilateral L4-5 and L5-S1 medial branch facet joint injections with fluoroscopic guidance. Risks were discussed including but not limited to: Bleeding, infection, possibility of epidural hematoma and subsequent neurological compromise, dural puncture, headaches, spinal cord and/or nerve damage, side effects of steroid medication, and poor results regarding pain control. Patient understands and wished to proceed. Under sterile prep and drape using C-arm fluoroscopic guidance AP and lateral and oblique views, bilateral L4-5 and L5-S1 facet joint MB's injections were performed, using quinke needles with stylette's x4,, medications injected: 120 mg Depo-Medrol +4 cc 0.25% bupivacaine +2 cc contrast. Condition at discharge stable patient tolerated the procedure well and no complications. CARMELA LOVETT MD Feb 06, 2021 08:27
--- NOTE | 2021-02-06 08:27 | PDOC ---
Progress Note - Pain Clinic Date of Service: DOS: DATE: 02/06/21 TIME: 08:23 Diagnosis: Dx: Low back pain with lumbar degenerative disc disease lumbar and lumbosacral spondylosis Cervical radiculopathy cervical degenerative disease Occipital neuralgia History or Present Illness: HPI: 45-year-old female returns for follow-up status post lumbar epidural steroid injection January 18, 2021. Patient reports it helped about 40 to 50% with the pain in the lower extremities but the pain in the back and now is her most significant complaint more on the right than the left and present bilaterally however radiating across the back but not into the lower extremities any longer. Patient reports it feels sharp and tight in the low back and more on the right side than the left aching cramping radiating can be constant as well in the back with walking standing patient rates her pain as 8 on scale 10 is worse over the past week 6 on average 6 its least is a 6 today. Patient reports she is waking her from sleep about every 3-4 hours secondary to the pain again more on the right side of the low back and the left worse with prolonged sitting standing in 1 position bending stooping especially with extension of the lumbar spine. Patient reports no new motor or sensory deficits no further radiation to lower extremities no bowel or bladder incontinence or other complaints. Physical Exam: VS: Blood pressure is 110/73 pulse 94 respirations 16 temperature 90.0 F height is 5 feet 7 inches weight is 196 pounds PE: PHYSICAL EXAMINATION: GENERAL: The patient is awake, alert, oriented, appropriate, very pleasant demeanor HEENT: Shows normocephalic, atraumatic. Extraocular movements are intact and symmetrical. NECK: Shows anterior throat supple without palpable lymphadenopathy noted. Swallow reflex symmetrical. CHEST: Shows normal on inspection. Breath sounds are clear bilaterally. HEART: Shows S1, S2 clear. No murmurs auscultated. ABDOMEN: Soft, nontender, nondistended, obese. BACK: Shows spine grossly in the midline. Normal-appearing cervical lordotic curvature. There is slightly increased thoracic kyphosis, some minor flattening of the lumbar lordotic curvature. Lumbar paraspinous muscles show symmetrical on inspection, on palpation shows some moderate tenderness diffusely throughout the upper, middle and lower distribution of the paraspinous muscles, but without specific trigger points, without radiation of pain. The patient has good rotational motion of the lumbar spine, both laterally as well as extension and flexion with significant pain with extension of the lumbar spine and axial loading greater on the right than the left also with right and left lateral rotation shows some significant pain with right lateral rotation past 10 degrees and left lateral rotation past 10 degrees better with forward flexion 45 degrees which is performed without significant difficulty. No tenderness over the spinous processes, sacrum or sacroiliac regions. EXTREMITIES: Lower extremities show deep tendon reflexes 2+ in the patellar and tendo calcaneus tendons. Motor exam is 5 on a scale of 5 with right dorsiflexion, extension, quadriceps and hamstring flexion and 5/5 on the left. Peripheral pulses are 1+ posterior tibial. No peripheral edema is noted bilaterally. Lower extremities are warm and dry. SKIN: Shows warm and dry, good turgor. No edema. No sores, rashes or bruising throughout. Procedure: Procedure: Options were discussed with the patient. Patient's old chart was reviewed as her current medication regimen updated current review of systems updated today as well. We will proceed with bilateral L4-5 and L5-S1 facet joint medial branch blocks today with fluoroscopic guidance. Risks were discussed including but not limited to: Bleeding, infection, possibility of epidural hematoma and subsequent neurological compromise, dural puncture, headaches, spinal cord and/or nerve damage, side effects of steroid medication, and poor results regarding pain control. Patient understands and wished to proceed. Patient will return to the clinic in approximately 2 weeks for follow-up, was counseled as return appointment activity level and side effects to be aware of. Medication Injected: Med Injected: Under sterile prep and drape using C-arm fluoroscopic guidance AP and lateral and oblique views, bilateral L4-5 and L5-S1 facet joint MB's injections were performed, using quinke needles with stylette's x4,, medications injected: 120 mg Depo-Medrol +4 cc 0.25% bupivacaine +2 cc contrast. Condition at discharge stable patient tolerated the procedure well and no complications. Condition at Discharge: Condition at Discharge: Condition at discharge stable, patient alert the procedure well and had no complications. CARMELA LOVETT MD Feb 06, 2021 08:27
== END | disposition home or self-care (01) ==
LOC: PNCL 07:42
PROVIDERS: ATTEND Anesthesiology
DX: M51.36 Other intervertebral disc degeneration, lumbar region (principal); M47.817 Spondylosis without myelopathy or radiculopathy, lumbosacral region; M50.10 Cervical disc disorder with radiculopathy, unspecified cervical region; M54.81 Occipital neuralgia; K21.9 Gastro-esophageal reflux disease without esophagitis; M19.90 Unspecified osteoarthritis, unspecified site; F41.9 Anxiety disorder, unspecified; F32.9 Major depressive disorder, single episode, unspecified; Z90.49 Acquired absence of other specified parts of digestive tract; Z98.890 Other specified postprocedural states; Z79.899 Other long term (current) drug therapy; Z86.73 Personal history of transient ischemic attack (TIA), and cerebral infarction without residual deficits; Z72.89 Other problems related to lifestyle; Z88.1 Allergy status to other antibiotic agents; Z88.5 Allergy status to narcotic agent; Z88.8 Allergy status to other drugs, medicaments and biological substances
CPT/HCPCS: 64493; 64494; J1030; J1040; J3490; Q9965

== ENCOUNTER → 2021-05-21 | Outpatient (CLI) | payer OTHER ==
[2020-10-02 07:00] VITALS: BP 112/61
[~2021-05-21] MED LIST changes: +ASPI1TAB59 PO; +CHOL500021 PO; +LEVO75TA5 PO; -SCOP1PAT11 TP; +SCOP1PAT12 TP; +[UNRECOGNIZED DRUG - OTHER] PO
--- NOTE | 2021-05-21 08:32 | PDOC ---
Progress Note - Pain Clinic Date of Service: DOS: DATE: 05/21/21 TIME: 08:28 Diagnosis: Dx: Low back pain with lumbar degenerative disease and lumbar and lumbosacral spondylosis History or Present Illness: HPI: 45-year-old female returns for follow-up status post a bilateral L4-5 L5-S1 medial branch facet blocks most recently February 06, 2021. Patient did very well about 85% improvement for 3 months, with the pain returning now but not near to baseline somewhat worse on the right than the left in the low back itself without radiation to the lower extremities. Patient what is aching and sharp at times when standing or shifting her weight from 1 side to the other can be constant ache in the low back again worse on the right side with standing sitting changing positions getting up from a seated position as well wakes her from sleep about once every 4 hours or so really to do much better distance walking doing household activities work activities travel with greater ease and comfort and sleeping better patient reports her pain is an 8 on scale 10 is worst over the past week 7 on average 5 its least and is a 5 today. Patient reports no bowel or bladder incontinence no motor or sensory deficits. Physical Exam: VS: Blood pressure is 102/63 pulse 65 respirations 18 temperature 97.7 F height is 5 foot 7 inches weight 195 pounds PE: PHYSICAL EXAMINATION: GENERAL: The patient is awake, alert, oriented, appropriate, very pleasant in demeanor HEENT: Shows normocephalic, atraumatic. Extraocular movements are intact and symmetrical. Oral cavity: Mucous membranes moist and pink. Dentition is intact. NECK: Shows anterior throat supple without palpable lymphadenopathy noted. Swallow reflex symmetrical. CHEST: Shows normal on inspection. Breath sounds are clear bilaterally, distant but no rales or rhonchi. HEART: Shows S1, S2 clear. No murmurs auscultated. ABDOMEN: Soft, nontender, nondistended, obese. No palpable organomegaly is noted. BACK: Shows spine grossly in the midline. Normal-appearing cervical lordotic curvature. There is slightly increased thoracic kyphosis, some minor flattening of the lumbar lordotic curvature. Lumbar paraspinous muscles show symmetrical on inspection, on palpation shows some moderate tenderness diffusely throughout the upper, middle and lower distribution of the paraspinous muscles without specific trigger points, without radiation of pain. The patient has good rotational motion of the lumbar spine, both laterally as well as extension and flexion with significant tenderness with right greater than left rotation past 10 degrees also extension and axial loading lumbar spine with significant pain on the right side but also on the left this is better with forward flexion 45 degrees was performed without difficulty. EXTREMITIES: Lower extremities show deep tendon reflexes deep in the patellar tendons, motor exam is 5 on a scale of 5 with right dorsiflexion, extension, quadriceps and hamstring flexion and 5/5 on the left. Peripheral pulses are 1+ posterior tibial. No peripheral edema is noted bilaterally. Lower extremities are warm and dry to touch, equal in color and appearance. SKIN: Shows warm and dry, good turgor. No edema. No sores, rashes or bruising throughout. Procedure: Procedure: Options discussed with the patient. Patient chart was reviewed his current medication regimen updated current review of systems updated today as well. We will proceed with a bilateral L4-5 and L5-S1 facet medial branch blocks today w ith fluoroscopic guidance. Risks were discussed including but not limited to: Bleeding, infection, possibility of epidural hematoma and subsequent neurological compromise, dural puncture, headaches, spinal cord and/or nerve damage, side effects of steroid medication, and poor results regarding pain control. Patient understands and wished to proceed. Patient return to clinic in approximately 4 weeks for follow-up, was counseled return appointment, activity level, and side effects beware of. Medication Injected: Med Injected: Under sterile prep and drape using C-arm fluoroscopic guidance AP and lateral and oblique views, bilateral L4-5 and L5-S1 facet joint MB's injections were performed, using quinke needles with stylette's x4,, medications injected: 120 mg Depo-Medrol +4 cc 0.25% bupivacaine +2 cc contrast. Condition at discharge stable patient tolerated the procedure well and no complications. Condition at Discharge: Condition at Discharge: Condition at discharge is stable, patient tolerated procedure well and had no complications. CARMELA LOVETT MD May 21, 2021 08:32
--- NOTE | 2021-05-21 08:33 | PDOC4 ---
Procedure Note: ICD 10 Code: ICD 10 Code: M4 7.816 M4 7.817 M 41.87 Procedure Note: Patient was consented for bilateral L4-5 and L5-S1 facet medial branch blocks with fluoroscopic guidance. Risks were discussed including but not limited to: Bleeding, infection, possibility of epidural hematoma and subsequent neurolo gical compromise, dural puncture, headaches, spinal cord and/or nerve damage, side effects of steroid medication, and poor results regarding pain control. Patient understands and wished to proceed. Under sterile prep and drape using C-arm fluoroscopic guidance AP and lateral and oblique views, bilateral L4-5 and L5-S1 facet joint MB's injections were performed, using quinke needles with stylette's x4,, medications injected: 120 mg Depo-Medrol +4 cc 0.25% bupivacaine +2 cc contrast. Condition at discharge stable patient tolerated the procedure well and no complications. CARMELA LOVETT MD May 21, 2021 08:33
== END | disposition home or self-care (01) ==
LOC: PNCL 07:33
PROVIDERS: ATTEND Anesthesiology
DX: M51.36 Other intervertebral disc degeneration, lumbar region (principal); M47.817 Spondylosis without myelopathy or radiculopathy, lumbosacral region; K21.9 Gastro-esophageal reflux disease without esophagitis; M19.90 Unspecified osteoarthritis, unspecified site; F41.9 Anxiety disorder, unspecified; F32.9 Major depressive disorder, single episode, unspecified; Z86.73 Personal history of transient ischemic attack (TIA), and cerebral infarction without residual deficits; Z79.899 Other long term (current) drug therapy; Z98.890 Other specified postprocedural states; Z90.49 Acquired absence of other specified parts of digestive tract; Z72.89 Other problems related to lifestyle; Z88.1 Allergy status to other antibiotic agents; Z88.5 Allergy status to narcotic agent; Z88.8 Allergy status to other drugs, medicaments and biological substances
CPT/HCPCS: 64493; 64494; J1030; J1040; J3490; Q9965

== ENCOUNTER → 2021-07-31 | Outpatient (CLI) | payer OTHER ==
[2020-10-02 07:00] VITALS: BP 112/61
[~2021-07-31] MED LIST changes: -BUPIVACAINE MPF 0.25% 10 ML VIAL. ONE; -DULO60CA6 PO; +DULO60CA7 PO; -IOHEXOL 180 MG/ML 10 ML VIAL. ONE; -methylPREDNISolone ACETATE 40 MG/ML VIAL. ONE; -methylPREDNISolone ACETATE 80 MG/ML VIAL. ONE
--- NOTE | 2021-07-31 08:17 | PDOC ---
Progress Note - Pain Clinic Date of Service: DOS: DATE: 07/31/21 TIME: 08:11 Diagnosis: Dx: Lumbar and lumbosacral spondylosis History or Present Illness: HPI: 46-year-old female returns for follow-up status post bilateral lumbar facet medial branch blocks L4-5 and L5-S1 bilaterally with about 80% improvement for the first month and the pain began to return patient report is wearing off and can have more pain in the low back bilaterally right essentially equal to left although left is somewhat worse at times patient reports a six on scale 10 is worse over the past week for an average three distillation is a five today patient ports aching sharp tight can be burning and constant with walking standing changing positions prolonged sitting better with laying down generally does not awaken her from sleep at night. Patient reports no loss of motor function no bowel or bladder incontinence and no radiation into the lower extremities at this time. Patient reports significant fatigability in the low back with rotation of motion as well as prolonged standing and extension of the lumbar spine. Physical Exam: VS: Blood pressure is 103/69 pulse 75 respirations 18 temperature 98.7 F height 5 feet 7 inches weight is 198 pounds PE: PHYSICAL EXAMINATION: GENERAL: The patient is awake, alert, oriented, appropriate, very pleasant in demeanor HEENT: Shows normocephalic, atraumatic. Extraocular movements are intact and symmetrical. Oral cavity: Mucous membranes moist and pink. Dentition is intact. NECK: Shows anterior throat supple without palpable lymphadenopathy noted. Swallow reflex symmetrical. CHEST: Shows normal on inspection. Breath sounds are clear bilaterally, distant but no rales or rhonchi. HEART: Shows S1, S2 clear. No murmurs auscultated. ABDOMEN: Soft, nontender, nondistended. No palpable organomegaly is noted. BACK: Shows spine grossly in the midline. Normal-appearing cervical lordotic curvature. There is slightly increased thoracic kyphosis, some minor flattening of the lumbar lordotic curvature. Lumbar paraspinous muscles show symmetrical on inspection, on palpation shows some moderate tenderness diffusely throughout the upper, middle and lower distribution of the paraspinous muscles without specific trigger points, without radiation of pain. The patient has good rotational motion of the lumbar spine, both laterally as well as extension and flexion with significant tenderness with extension of the lumbar spine and axial loading of the low back at 10 degrees also right and left lateral rotation at 10 degrees is tender with right and left back pain but without radiation forward flexion 45 degrees is performed out significant difficulty. No tenderness over the spinous processes, sacrum or sacroiliac regions. EXTREMITIES: Lower extremities show deep tendon reflexes 2+ in the patellar and tendo calcaneus tendons. Motor exam is five on a scale of 5 with right dorsiflexion, extension, quadriceps and hamstring flexion and five/5 on the left. Peripheral pulses are one posterior tibial. No peripheral edema is noted bilaterally. Lower extremities are warm and dry. SKIN: Shows warm and dry, good turgor. No edema. No sores, rashes or bruising throughout. Procedure: Procedure: Options were discussed with the patient. Patient chart reviews her current medication regimen updated current review of systems updated today as well. We will preauthorize patient for radiofrequency ablation bilateral L4-5 and L5-S1 medial branches with fluoroscopic guidance. Patient will continue with stretching strength exercises meantime as well as oral analgesics and Flexeril as we have prescribed with her on her last visit. Once approved, patient will return for bilateral L4-5 and L5-S1 medial branch radiofrequency ablation with fluoroscopic guidance. Medication Injected: Med Injected: None Condition at Discharge: Condition at Discharge: Condition at discharge is stable. CARMELA LOVETT MD Jul 31, 2021 08:17
== END | disposition home or self-care (01) ==
LOC: PNCL 07:44
PROVIDERS: ATTEND Anesthesiology
DX: M47.817 Spondylosis without myelopathy or radiculopathy, lumbosacral region (principal); M47.816 Spondylosis without myelopathy or radiculopathy, lumbar region; K21.9 Gastro-esophageal reflux disease without esophagitis; M19.90 Unspecified osteoarthritis, unspecified site; F41.9 Anxiety disorder, unspecified; F32.9 Major depressive disorder, single episode, unspecified; Z86.73 Personal history of transient ischemic attack (TIA), and cerebral infarction without residual deficits; Z90.49 Acquired absence of other specified parts of digestive tract; Z98.890 Other specified postprocedural states; Z79.899 Other long term (current) drug therapy; Z72.89 Other problems related to lifestyle; Z88.1 Allergy status to other antibiotic agents; Z88.8 Allergy status to other drugs, medicaments and biological substances
CPT/HCPCS: 99212; G0463

== ENCOUNTER → 2021-09-03 | Outpatient (CLI) | payer OTHER ==
[2020-10-02 07:00] VITALS: BP 112/61
[~2021-09-03] MED LIST changes: +BUPIVACAINE MPF 0.25% 10 ML VIAL. ONE; +LIDOCAINE 1% PF 2 ML VIAL. ONE; +LIDOCAINE 2% PF 5 ML VIAL. ONE; +methylPREDNISolone ACETATE 80 MG/ML VIAL. ONE
--- NOTE | 2021-09-03 16:00 | PDOC ---
Progress Note - Pain Clinic Date of Service: DOS: DATE: 09/03/21 TIME: 15:55 Diagnosis: Dx: Lumbar and lumbosacral spondylosis Lumbar degenerative disc disease Cervical radiculopathy with cervical degenerative disc disease Occipital neuralgia History or Present Illness: HPI: 46-year-old female returns for follow-up status post bilateral lumbar facet medial branch blocks with excellent results about 80% improvement for over a month following the injections patient reports the pain is returning however we discussed radiofrequency ablation which has been approved with her insurance provider and patient elected proceed with this today reporting still significant pain in the low back right greater than left without radiation to the lower extremities patient reports is an 8 on scale 10 is worse over the past week 6 on average 4 to [place] is a 6 today patient scribes is tight and shooting across the back aching burning in the back radiating across the low back as well and constant at times with walking standing changing position specially prolonged sitting getting up from a seated position twisting right or left and especially with extended standing and lumbar extension. Patient reports no bowel or bladder incontinence. Physical Exam: VS: Blood pressure is 99/68 pulse 98 respirations 18 temperature is 97.8 F height is 5 foot 7 inches weight is 202 pounds PE: PHYSICAL EXAMINATION: GENERAL: The patient is awake, alert, oriented, appropriate, very pleasant in demeanor HEENT: Shows normocephalic, atraumatic. Extraocular movements are intact and symmetrical. Oral cavity: Mucous membranes moist and pink. Dentition is intact. NECK: Shows anterior throat supple without palpable lymphadenopathy noted. Swallow reflex symmetrical. CHEST: Shows normal on inspection. Breath sounds are clear bilaterally. HEART: Shows S1, S2 clear. No murmurs auscultated. ABDOMEN: Soft, nontender, nondistended. No palpable organomegaly is noted. BACK: Shows spine grossly in the midline. Normal-appearing cervical lordotic curvature. There is mildly increased thoracic kyphosis, some flattening of the lumbar lordotic curvature. Lumbar paraspinous muscles show symmetrical on inspection, on palpation shows some moderate tenderness diffusely throughout the upper, middle and lower distribution of the paraspinous muscles, but without specific trigger points, without radiation of pain. The patient has good rotational motion of the lumbar spine, both laterally as well as extension and flexion with significant tenderness with extension and axial loading lumbar spine better with forward flexion at 45 degrees which was performed without significant difficulty, right left lateral rotation shows moderate tenderness with right lateral Tat[place] greater than 10 degrees but also present on the left to a lesser extent. No tenderness over the spinous processes, sacrum or sacroiliac regions. EXTREMITIES: Lower extremities show deep tendon reflexes 2+ in the patellar and tendo calcaneus tendons. Motor exam is 5 on a scale of 5 with right dorsiflexion, extension, quadriceps and hamstring flexion and 5/5 on the left. Peripheral pulses are 1+ posterior tibial. No peripheral edema is noted bilaterally. Lower extremities are warm and dry to touch, equal in color and appearance. SKIN: Shows warm and dry, good turgor. No edema. No sores, rashes or bruising throughout. Procedure: Procedure: Options were discussed with the patient. Patient's old chart was reviewed as her current medication regimen updated current review of systems updated today as well. We will proceed with bilateral radiofrequency ablation the L4-5 and L5-S1 medial branch facets with fluoroscopic guidance. Risks were discussed including but not limited to: Bleeding, infection, possibility of epidural hematoma and subsequent neurological compromise, dural puncture, headaches, spinal cord and/or nerve damage, potential thermal damage to the motor nerve as well as surrounding tissues and permanent ischemic damage, side effects of steroid medication, and poor results regarding pain control. Patient understands and wished to proceed. Patient will return to clinic in approximate 4 weeks for follow-up, was counseled as to return appointment, activity level, and side effects to be aware of. Medication Injected: Med Injected: Under sterile prep and drape patient in prone position using C-arm fluoroscopic guidance patient's lumbar spine was visualized in both AP oblique and lateral views using 1% lidocaine to topically anesthetize the areas overlying the L3-4, L4-5 and L5-S1 facet joints at the point of the medial branches. Using a 22- gauge insulated radiofrequency needle with curved tips and stylette, the needles were advanced to contact the region of the facet with the medial branch targets. This was repeated at the L3-4 L4-5 and L5-S1 levels. Stylette was removed and using radiofrequency probe inserted into each needle individually at each level and then motor tested with no motor stimulation of the lower extremity. Patient did have some multifidus musculature contraction in the lumbar spine only but without radiation. At this time 1 cc of 2% lidocaine was then injected in each needle after motor testing but prior to radiofrequency ablation. Needle position was confirmed continuously throughout the radiofrequency ablation with both AP oblique and lateral views at each level. At this time radiofrequency ablation was carried out each level for 60 seconds at 80 C x 2 at each level with the tip of the needle turned 90 degrees after the first 60 seconds and then subsequent 60 seconds of radiofrequency ablation. Once radiofrequency ablation was completed solution containing 0.25% bupivacaine 1 cc and 20 mg Depo-Medrol was injected each level. Needle was then withdrawn. The procedure was repeated for the contralateral side as described as well. Patient had no paresthesias t hroughout the procedure no radiation of pain into the lower extremities no lower extremity motor response with motor testing bilaterally. Please see radiofrequency flowsheet for levels, temperatures, impedance, etc. Condition at Discharge: Condition at Discharge: Condition at discharge stable, patient tolerated the procedure well and had no complications. CARMELA LOVETT MD Sep 03, 2021 16:00
--- NOTE | 2021-09-03 16:01 | PDOC4 ---
Procedure Note: ICD 10 Code: ICD 10 Code: M4 7.816 M4 7.817 Procedure Note: Patient was consented for bilateral L4-5 and L5-S1 lumbar facet radiofrequency ablation with fluoroscopic guidance. Risks were discussed including but not limited to: Bleeding, infection, possibility of epidural hematoma and subsequent neurological compromise, dural puncture, headaches, spinal cord and/or nerve damage, side effects of steroid medication, potential thermal damage to the surrounding structures as well as the motor nerves and permanent ischemic damage, and poor results regarding pain control. Patient understands and wished to proceed Under sterile prep and drape patient in prone position using C-arm fluoroscopic guidance patient's lumbar spine was visualized in both AP oblique and lateral views using 1% lidocaine to topically anesthetize the areas overlying the L3-4, L4-5 and L5-S1 facet joints at the point of the medial branches. Using a 22- gauge insulated radiofrequency needle with curved tips and stylette, the needles were advanced to contact the region of the facet with the medial branch targets. This was repeated at the L3-4 L4-5 and L5-S1 levels. Stylette was removed and using radiofrequency probe inserted into each needle individually at each level and then motor tested with no motor stimulation of the lower extremity. Patient did have some multifidus musculature contraction in the lumbar spine only but without radiation. At this time 1 cc of 2% lidocaine was then injected in each needle after motor testing but prior to radiofrequency ablation. Needle position was confirmed continuously throughout the radiofrequency ablation with both AP oblique and lateral views at each level. At this time radiofrequency ablation was carried out each level for 60 seconds at 80 C x 2 at each level with the tip of the needle turned 90 degrees after the first 60 seconds and then subsequent 60 seconds of radiofrequency ablation. Once radiofrequency ablation was completed solution containing 0.25% bupivacaine 1 cc and 20 mg Depo-Medrol was injected each level. Needle was then withdrawn. The procedure was repeated for the contralateral side as described as well. Patient had no paresthesias throughout the procedure no radiation of pain into the lower extremities no lower extremity motor response with motor testing bilaterally. Please see radiofrequency flowsheet for levels, temperatures, impedance, etc. CARMELA LOVETT MD Sep 03, 2021 16:01
== END | disposition home or self-care (01) ==
LOC: PNCL 13:57
PROVIDERS: ATTEND Anesthesiology
DX: M51.16 Intervertebral disc disorders with radiculopathy, lumbar region (principal); M47.816 Spondylosis without myelopathy or radiculopathy, lumbar region; M47.817 Spondylosis without myelopathy or radiculopathy, lumbosacral region; M54.81 Occipital neuralgia; M50.10 Cervical disc disorder with radiculopathy, unspecified cervical region; K21.9 Gastro-esophageal reflux disease without esophagitis; M19.90 Unspecified osteoarthritis, unspecified site; F41.9 Anxiety disorder, unspecified; F32.9 Major depressive disorder, single episode, unspecified; Z86.73 Personal history of transient ischemic attack (TIA), and cerebral infarction without residual deficits; Z90.49 Acquired absence of other specified parts of digestive tract; Z98.890 Other specified postprocedural states; Z79.899 Other long term (current) drug therapy; Z88.8 Allergy status to other drugs, medicaments and biological substances; Z72.89 Other problems related to lifestyle
CPT/HCPCS: 64635; 64636; J1040; J3490

== ENCOUNTER → 2021-09-12 | Outpatient (CLI) | payer OTHER ==
[2020-10-02 07:00] VITALS: BP 112/61
[~2021-09-12] MED LIST changes: -BUPIVACAINE MPF 0.25% 10 ML VIAL. ONE; -LIDOCAINE 1% PF 2 ML VIAL. ONE; -LIDOCAINE 2% PF 5 ML VIAL. ONE; -methylPREDNISolone ACETATE 80 MG/ML VIAL. ONE
--- NOTE | 2021-09-12 10:38 | PDOC ---
Progress Note - Pain Clinic Date of Service: DOS: DATE: 09/12/21 TIME: 10:31 Diagnosis: Dx: Lumbar and lumbosacral spondylosis Cervical radiculopathy with cervical degenerative disc disease Occipital neuralgia History or Present Illness: HPI: 46-year-old female returns for follow-up status post bilateral L4-5 and L5-S1 lumbar radiofrequency ablation on 03 September. Patient reports about 80% improv ement is feeling much better with her back her chief complaint today however is neck and bilateral upper extremity pain left greater than right. Patient is had this for over a year and reports some weakness in the left hand with numbness and tingling in the thumb and first finger on the left side most especially patient report is aching and shooting tingling burning in the base of the neck and shoulders radiating constant patient reports its on the right side as well but is much worse on the left patient rates as a 5 on a scale 10 is worst over the past week for an average 3 at its least and is a 4 today. Patient reports no full motor loss of function but significant fatigability and dropping items on the left side. Patient reports is worse when she is doing repetitive motions reaching forward and weightbearing repetitive lifting or reaching over her head with her left hand, greater than right. Patient reports it does awaken her from sleep occasionally but not most nights. Patient has done therapy in the past still doing stretching strength exercises from her therapy, also taking oral analgesics mostly in naproxen which does seem to help to a moderate extent. Physical Exam: VS: Blood pressure is 130/81 pulse 99 respirations are 18 temperature is 98.7 F height is 5 feet 7 inches weight is 202 pounds. PE: PHYSICAL EXAMINATION: GENERAL: The patient is awake, alert, oriented, appropriate, very pleasant in demeanor HEENT: Shows normocephalic, atraumatic. Extraocular movements are intact and symmetrical. Oral cavity: Mucous membranes moist and pink. Dentition is intact. NECK: Shows anterior throat supple without palpable lymphadenopathy noted. Swallow reflex symmetrical. CHEST: Shows normal on inspection. Breath sounds are clear bilaterally, no rales or rhonchi. HEART: Shows S1, S2 clear. No murmurs auscultated. ABDOMEN: Soft, nontender, nondistended. No palpable organomegaly is noted. BACK: Shows spine grossly in the midline. Normal-appearing cervical lordotic curvature. Cervical paraspinous muscles show symmetrical inspection, on palpation is moderate tenderness diffusely bilaterally diffusely without significant radiation in the middle and lower distribution the paraspinous muscles more on the left than the right into the superior medial trapezius but without trigger points atrophy or hypertrophy. Patient shows good rotation motion cervical spine both laterally as well as full extension full forward flexion. There is slightly increased thoracic kyphosis, some minor flattening of the lumbar lordotic curvature. Lumbar paraspinous muscles show symmetrical on inspection, on palpation shows some moderate tenderness diffusely throughout the upper, middle and lower distribution of the paraspinous muscles without specific trigger points, without radiation of pain. The patient has good rotational motion of the lumbar spine, both laterally as well as extension and flexion without significant difficulty. No tenderness over the spinous processes, sacrum or sacroiliac regions. EXTREMITIES: Lower extremities show deep tendon reflexes 2+ in the patellar and tendo calcaneus tendons. Motor exam is 5 on a scale of 5 with right dorsiflexion, extension, quadriceps and hamstring flexion and 5/5 on the left. Peripheral pulses are 1+ posterior tibial. No peripheral edema is noted bilaterally. Lower extremities are warm and dry. Upper extremity show deep tendon reflexes 2+ in the bicep tricep tendons motor exam is positive for scale 5 on the left and 5 out of 5 on the right with assembler metal furniture strength bicep and tricep flexion. Peripheral pulses are 2+ radial. Shoulder shrug is strong and intact without loss of strength on resistance bilaterally. SKIN: Shows warm and dry, good turgor. No edema. No sores, rashes or bruising throughout. Procedure: Procedure: Options were discussed with patient. Patient's old chart was reviewed as her current medication regimen updated current review of systems updated today as well. We will preauthorize patient for a cervical epidural steroid injection she has clinical radicular pain in C6-7 dermatomal distribution left greater th an right upper extremity with significant weakness numbness and tingling in the same distribution with the left hand. In the meantime, patient will continue with stretching strength exercises massage techniques heat application as well as oral analgesics as currently. Once approved, patient will return to the clinic for translaminar approach C6-7 level cervical epidural steroid injection with fluoroscopic guidance. Medication Injected: Med Injected: None Condition at Discharge: Condition at Discharge: Condition at discharge is stable. CARMELA LOVETT MD Sep 12, 2021 10:38
== END | disposition home or self-care (01) ==
LOC: PNCL 10:05
PROVIDERS: ATTEND Anesthesiology
DX: M50.10 Cervical disc disorder with radiculopathy, unspecified cervical region (principal); M47.817 Spondylosis without myelopathy or radiculopathy, lumbosacral region; M54.81 Occipital neuralgia; K21.9 Gastro-esophageal reflux disease without esophagitis; M19.90 Unspecified osteoarthritis, unspecified site; F41.9 Anxiety disorder, unspecified; F32.9 Major depressive disorder, single episode, unspecified; Z90.49 Acquired absence of other specified parts of digestive tract; Z98.890 Other specified postprocedural states; Z79.899 Other long term (current) drug therapy; Z86.73 Personal history of transient ischemic attack (TIA), and cerebral infarction without residual deficits; Z72.89 Other problems related to lifestyle; Z88.1 Allergy status to other antibiotic agents; Z88.8 Allergy status to other drugs, medicaments and biological substances
CPT/HCPCS: 99212; G0463

== ENCOUNTER → 2021-09-27 | Outpatient (CLI) | payer OTHER ==
[2020-10-02 07:00] VITALS: BP 112/61
[~2021-09-27] MED LIST changes: +DEXAMETHASONE PRES.FREE 10 MG/ML VIAL. ONE; +IOHEXOL 180 MG/ML 10 ML VIAL. ONE; +TERB250T72 PO
--- NOTE | 2021-09-27 08:41 | PDOC4 ---
Procedure Note: ICD 10 Code: ICD 10 Code: M54.12 M50.30 Procedure Note: Patient was consented for cervical epidural steroid injection with fluoroscopic guidance. Risks were discussed including but not limited to: Bleeding, infection, possibility of epidural hematoma and subsequent neurological compromise, dural puncture, headaches, spinal cord and/or nerve damage, side effects of steroid medication, and poor results regarding pain control. Patient understands and wished to proceed. Procedure cervical epidural steroid injection at the C6-7 level, using local anesthetic under sterile prep and drape using C-arm fluoroscopic guidance under local anesthesia medications injected ;120 mg Depo-Medrol +5 mL normal saline and 2 mL contrast; condition at discharge is stable patient tolerated procedure well. and had no complications CARMELA LOVETT MD Sep 27, 2021 08:41
--- NOTE | 2021-09-27 08:41 | PDOC ---
Progress Note - Pain Clinic Date of Service: DOS: DATE: 09/27/21 TIME: 08:37 Diagnosis: Dx: Cervical radiculopathy with cervical degenerative disc disease Lumbar radiculopathy lumbar degenerative disease lumbar and lumbosacral spondylosis Occipital neuralgia History or Present Illness: HPI: 46-year-old female returns for follow-up status post lumbar radiofrequency ablation at the L4-5 and L5-S1 medial branches. Patient reports about 75% improvement and reports "doing great" with the low back her chief complaint today is neck and bilateral upper extremity pain somewhat worse on the right than the left but present bilaterally radiating into the tricep region into the forearm and into the thumb and first and second fingers on both hands slightly more noticeable on the left hand patient reports is a 5 on a scale 10 is worst 5 on average 4 to [place] is a 5 today patient ports aching sharp dull shooting in the upper extremities bilaterally with tingling and burning in the thumb and fingers radiating can be constant with activity weightbearing reaching overhead with her arms as well as driving and weight lifting reaching forward as well. Patient reports no loss of motor function no dropping of items or weakness but significant fatigability in the bilateral upper extremities when the pain is present. Patient reports it wakes her from sleep least once or twice a night she has to reposition to get back to sleep. Patient reports no bowel or bladder incontinence. Physical Exam: VS: Blood pressure is 107/68 pulse 79 respirations 16 temperature 97.6 F height is 5 foot 7/2 inches weight is 204 pounds. PE: PHYSICAL EXAMINATION: GENERAL: The patient is awake, alert, oriented, appropriate, very pleasant in demeanor HEENT: Shows normocephalic, atraumatic. Extraocular movements are intact and symmetrical. Oral cavity: Mucous membranes moist and pink. Dentition is intact. NECK: Shows anterior throat supple without palpable lymphadenopathy noted. Swallow reflex symmetrical. CHEST: Shows normal on inspection. Breath sounds are clear bilaterally. HEART: Shows S1, S2 clear. No murmurs auscultated. ABDOMEN: Soft, nontender, nondistended. No palpable organomegaly is noted. BACK: Shows spine grossly in the midline. Normal-appearing cervical lordotic curvature. Cervical paraspinous muscles show symmetrical with inspection, on palpation some moderate tenderness diffusely bilaterally only diffusely without significant radiation without trigger points without asymmetry. Patient shows good rotation motion cervical spine with some moderate tenderness with right and left lateral rotation past 45degrees but not with extension or forward flexion is performed fully. There is slightly increased thoracic kyphosis, some minor flattening of the lumbar lordotic curvature. Lumbar paraspinous muscles show symmetrical on inspection, on palpation shows some moderate tenderness diffusely throughout the upper, middle and lower distribution of the paraspinous muscles without specific trigger points, without radiation of pain. The patient has good rotational motion of the lumbar spine, both laterally as well as extension and flexion without significant difficulty. No tenderness over the spinous processes, sacrum or sacroiliac regions. EXTREMITIES: Lower extremities show deep tendon reflexes 2+ in the patellar and tendo calcaneus tendons. Motor exam is 5 on a scale of 5 with right dorsiflexion, extension, quadriceps and hamstring flexion and 5/5 on the left. Peripheral pulses are 1+ posterior tibial. No peripheral edema is noted bilaterally. Lower extremities are warm and dry. Upper extremities show deep tendon reflexes 2+ in the bicep triceps tendons motor exam strong with 4-5 left and 5 out of 5 right policy intern strength bicep and tricep flexion. Peripheral pulses are 2+ radial. Shoulder shrug is intact and symmetrical without loss of strength on resistance. SKIN: Shows warm and dry, good turgor. No edema. No sores, rashes or bruising throughout. Procedure: Procedure: Options discussed with patient. Patient's old chart was reviewed as her current medication regimen updated current review of systems updated today as well. We will proceed with a cervical epidural steroid injection today with fluoroscopic guidance. Risks were discussed including but not limited to: Bleeding, infection, possibility of epidural hematoma and subsequent neurological co mpromise, dural puncture, headaches, spinal cord and/or nerve damage, side effects of steroid medication, and poor results regarding pain control. Patient understands and wished to proceed. Patient will return to the clinic in approximately 2 weeks for follow-up, was counseled as to return appointment, activity level, and side effect to be aware of. Medication Injected: Med Injected: Procedure cervical epidural steroid injection at the C6-7 level, using local anesthetic under sterile prep and drape using C-arm fluoroscopic guidance under local anesthesia medications injected ;120 mg Depo-Medrol +5 mL normal saline and 2 mL contrast; condition at discharge is stable patient tolerated procedure well. and had no complications Condition at Discharge: Condition at Discharge: Condition at discharge stable, patient Sweetie the procedure well and had no complications. CARMELA LOVETT MD Sep 27, 2021 08:41
== END | disposition home or self-care (01) ==
LOC: PNCL 07:53
PROVIDERS: ATTEND Anesthesiology
DX: M50.10 Cervical disc disorder with radiculopathy, unspecified cervical region (principal); M54.12 Radiculopathy, cervical region; M51.16 Intervertebral disc disorders with radiculopathy, lumbar region; M47.27 Other spondylosis with radiculopathy, lumbosacral region; M54.81 Occipital neuralgia; K21.9 Gastro-esophageal reflux disease without esophagitis; M19.90 Unspecified osteoarthritis, unspecified site; F41.9 Anxiety disorder, unspecified; F32.9 Major depressive disorder, single episode, unspecified; Z86.73 Personal history of transient ischemic attack (TIA), and cerebral infarction without residual deficits; Z90.49 Acquired absence of other specified parts of digestive tract; Z98.890 Other specified postprocedural states; Z79.899 Other long term (current) drug therapy; Z72.89 Other problems related to lifestyle; Z88.1 Allergy status to other antibiotic agents; Z88.5 Allergy status to narcotic agent; Z88.8 Allergy status to other drugs, medicaments and biological substances
CPT/HCPCS: 62321; J1100; Q9965

== ENCOUNTER → 2021-11-28 | Outpatient (CLI) | payer OTHER ==
[2020-10-02 07:00] VITALS: BP 112/61
[~2021-11-28] MED LIST changes: -DEXAMETHASONE PRES.FREE 10 MG/ML VIAL. ONE; -IOHEXOL 180 MG/ML 10 ML VIAL. ONE
--- NOTE | 2021-11-28 08:55 | PDOC ---
Progress Note - Pain Clinic Date of Service: DOS: DATE: 11/28/21 TIME: 08:51 Diagnosis: Dx: Particularly lumbar degenerative disease and lumbar and lumbosacral spondylosis Cervical radiculopathy with cervical degenerative disease Occipital neuralgia History or Present Illness: HPI: 46-year-old female returns for follow-up status post cervical epidural steroid injection x1. Patient reports doing very well with pain in the shoulders and upper extremities however her chief complaint today is left-sided posterior pain in the head and behind the left ear radiating to the superior aspect of the occipital region as well as into the parietal region patient reports some on the ear as well rated as a 7 on scale 10 is worse over the past week 5 on average 3 its least is a 5 today patient was aching alternating sharp and dull stabbing can be radiating constant in the back of the head and the top of the head se nsitive to touch and to comb or brush her hair on the left side only. Patient reports is getting worse with time no specific injury or accident to the area but is causing him significant headaches but no visual disturbances in the left visual field. Patient reports no loss of motor function no photophobia or other deficits. Physical Exam: VS: Blood pressure is 107/71 pulse 75 respirations 18 temperature 97.8 F weight is 206 pounds. PE: PHYSICAL EXAMINATION: GENERAL: The patient is awake, alert, oriented, appropriate, very pleasant in demeanor HEENT: Shows normocephalic, atraumatic. Extraocular movements are intact and symmetrical. Oral cavity: Mucous membranes moist and pink. Dentition is intact. Patient wearing hearing aid left ear. Palpation of the posterior occiput shows some moderate tenderness with palpation in the scalp lateral to the occipital protuberance but medial to the mastoid process with some radiation superiorly into the posterior occipital region no specific abnormalities are palpated such as asymmetry or musculature abnormality in the scapular musculatur e. Right side is nontender with palpation in the same distribution of the occipital region. NECK: Shows anterior throat supple without palpable lymphadenopathy noted. Swallow reflex symmetrical. CHEST: Shows normal on inspection. Breath sounds are clear bilaterally. HEART: Shows S1, S2 clear. No murmurs auscultated. ABDOMEN: Soft, nontender, nondistended. No palpable organomegaly is noted. BACK: Shows spine grossly in the midline. Normal-appearing cervical lordotic curvature. There is slightly increased thoracic kyphosis, some minor flattening of the lumbar lordotic curvature. Lumbar paraspinous muscles show symmetrical on inspection, on palpation shows some moderate tenderness diffusely throughout the upper, middle and lower distribution of the paraspinous muscles, but without specific trigger points, without radiation of pain. The patient has good rotational motion of the lumbar spine, both laterally as well as extension and flexion without significant difficulty. EXTREMITIES: Lower extremities show deep tendon reflexes 2+ in the patellar and tendo calcaneus tendons. Motor exam is 5 on a scale of 5 with right dorsiflexion, extension, quadriceps and hamstring flexion and 4/5 on the left. Peripheral pulses are 1+ posterior tibial. No peripheral edema is noted bilaterally. Lower extremities are warm and dry to touch, equal in color and appearance. Upper extremities are deep and reflexes 2+ in the biceps triceps tendons, motor exam is normal with tub washer strength rated 5 out of 5 as is biceps and tricep flexion. SKIN: Shows warm and dry, good turgor. No edema. No sores, rashes or bruising throughout. Procedure: Procedure: Options discussed with the patient. Patient's chart was reviewed as her current medication regimen updated current review of systems updated today as well. We will preauthorize patient for a left-sided greater occipital nerve block. Patient has had this in the past and done very well with similar symptoms. The meantime, patient will continue with oral analgesics as well as massage techniques stretching therapy exercises of the cervical distribution that we went over with her today. Medication Injected: Med Injected: None Condition at Discharge: Condition at Discharge: Condition at discharge stable. CARMELA LOVETT MD Nov 28, 2021 08:55
== END | disposition home or self-care (01) ==
LOC: PNCL 08:08
PROVIDERS: ATTEND Anesthesiology
DX: M47.816 Spondylosis without myelopathy or radiculopathy, lumbar region (principal); M51.36 Other intervertebral disc degeneration, lumbar region; M50.10 Cervical disc disorder with radiculopathy, unspecified cervical region; M54.81 Occipital neuralgia; K21.9 Gastro-esophageal reflux disease without esophagitis; M19.90 Unspecified osteoarthritis, unspecified site; F41.9 Anxiety disorder, unspecified; F32.9 Major depressive disorder, single episode, unspecified; Z86.73 Personal history of transient ischemic attack (TIA), and cerebral infarction without residual deficits; Z79.899 Other long term (current) drug therapy; Z98.890 Other specified postprocedural states
CPT/HCPCS: 99212; G0463